=== PATIENT | female | born 1990 | race Caucasian/White ===

== ENCOUNTER 2020-09-17 13:34 | Outpatient (REF) | payer BC, SELFPAY ==
[2020-09-17 14:15] LABS: COVID-19 Test Negative (Negative)
== END 2020-09-17 13:35 | disposition home or self-care (01) ==
LOC: HO.LAB 13:34
PROVIDERS: PCP Internal Medicine; Visit Provider Internal Medicine
DX: Z20.828 Contact with and (suspected) exposure to other viral communicable diseases (principal)
CPT/HCPCS: 87635; C9803

== ENCOUNTER 2020-11-23 20:53 | Emergency (ER) | payer BC, SELFPAY ==
[2020-11-23 21:02] VITALS: BP 120/64; PULSE 78; RESP 16; TEMP 36.3; O2SAT 100; BMI 33.6
[2020-11-23 21:12] LABS: Glucose, Whole Blood 102 mg/dL (60-115)
--- NOTE | 2020-11-23 21:13 | PC.NURSE ---
BLOOD SUGAR IS 102
--- NOTE | 2020-11-23 21:53 | ED.ALLEREA ---
HPI - Allergic Reaction General Chief complaint: Allergic Reaction Stated complaint: CHEST PAIN,ABD PAIN AFTER EATING DINNER Time Seen by Provider: 11/23/20 21:12 Source: patient Mode of arrival: EMS History of Present Illness HPI narrative: This is a 30-year-old female without significant past medical history who presents via EMS after having dinner with her family where she was eating crab cakes, broccoli, and blue fish. Patient states that upon eating the blue fish she acutely developed significant substernal central chest pain, nonradiating that was associated with diaphoresis, nausea and vomiting, dizziness, mild hives to the neck, as well as facial flushing. Patient states that the pain was so significant, has never happened before, and has no allergies that she is aware of. Patient took a generic brand of Benadryl, but vomited afterwards. Patient states that her symptoms began resolving EN route to the hospital and currently she is experiencing mild residual pain and lightheadedness but otherwise is feeling much better. Related Data Previous Rx's Medication Instructions Recorded epinephrine [EpiPen] 0.3 mg IM Q10M PRN #1 ea 11/23/20 omeprazole 40 mg PO DAILY 30 Days #30 cap 11/23/20 Allergies Allergy/AdvReac Type Severity Reaction Status Date / Time fish derived [fish] Allergy Severe Shortness Verified 11/23/20 21:14 of Breath Review of Systems Review of Systems: Pertinent positives and negatives as stated in HPI and 10 point review of systems is otherwise negative. PMFSH Past Medical History Source: nursing notes reviewed Medical History No known health problems Social History Social History Advance Directives: No Advance Directives Information Provided: No Physical Exam Vital Signs: Vital Signs: Last Vital Signs Temp 97.3 F 11/23/20 21:02 Pulse 83 11/23/20 23:35 Resp 16 11/23/20 23:35 BP 117/70 11/23/20 23:35 Pulse Ox 99 11/23/20 23:35 Body Mass Index 33.6 VITAL SIGNS: Reviewed. GENERAL: Well developed, well nourished, in no acute distress. HEAD: Normocephalic/atraumatic, EYES: PERRLA, EOMI NOSE: Nares patent bilateral OROPHARYNX: no oral lesions noted, posterior pharynx clear without tongue/lip/facial swelling NECK: Supple, no adenopathy LUNGS: Normal breath sounds, no wheeze/rales/stridor. SpO2<100> CARDIOVASCULAR: Regular rate and rhythm without noted murmurs, no JVD or lower extremity edema. ABDOMEN: Soft, mild tenderness in the right upper quadrant on deep palpation, non-distended with bowel sounds. EXTREMITIES: No cyanosis, clubbing or edema. SKIN: Inspection of the skin reveals no rashes NEUROLOGIC: Alert and oriented x 4. Course Course Course Narrative: This is a 30-year-old female with history and clinical presentation consistent with allergic reaction with associated GI symptoms that have now resolved, unclear as to what the inciting food might have been. There are no concerns for airway at this time, but patient will continue to be monitored and as she is 4-1/2 months post will also evaluate for possible PE but doubt cardiac ischemia or pulmonary infection at this time. All investigations were reviewed and the noted leukocytosis is likely secondary to stress response from patient's experience and unlikely to be secondary to acute infection. In addition, the noted transaminemia is reported as chronic by the patient. Otherwise, the D-dimer was elevated and this was followed up with a CTA with PE protocol after discussion with the patient and was negative for evidence acute pathology to include no evidence VTE. Were discussed with the patient at bedside and she was provided with combination analgesics for persistent discomfort as well as antacid and will be discharged home in stable condition with an EpiPen as well as a prescription antacid instructions to follow-up with her primary care provider for coordination with an roads and parking lots sweeper operator. MDM - Allergic Reaction Lab Data Result diagrams: 11/23/20 21:55 11/23/20 21:55 Labs: Lab Results 11/23/20 11/23/20 11/23/20 Range/Units 21:07 21:55 21:55 WBC 13.8 H (4.8-10.8) X10*3/uL RBC 4.95 (4.20-5.50) X10*6/uL Hgb 13.0 (12.0-16.0) g/dl Hct 40.2 (37-47) % MCV 81.2 (80-98) fL MCH 26.3 L (27.0-33.0) pg MCHC 32.3 (31.0-35.0) g/dl RDW 14.0 (11.0-16.0) % Plt Count 309 (160-400) X10*3/uL MPV 9.5 (9.4-12.3) fL Immature Gran % (Auto) 0.5 H (0.0-0.4) % Neut % (Auto) 80.7 H (45-73) % Lymph % (Auto) 14.3 L (20-40) % [place] % (Auto) 4.1 (2-11) % Eos % (Auto) 0.2 (0-4) % Baso % (Auto) 0.2 (0-2) % Lymph # (Auto) 2.0 (1.2-4.9) X10*3/uL [place] # (Auto) 0.6 (0.1-1.2) X10*3/uL Eos # (Auto) 0.0 (0.0-0.4) X10*3/uL Baso # (Auto) 0.0 (0.0-0.2) X10*3/uL Abs Immat Gran (auto) 0.07 H (0.00-0.03) X10*3/uL Absolute Neuts (auto) 11.2 H (2.0-8.3) X10*3/uL Absolute Nucleated RBC 0.000 (0.0-0.012) X10*3/uL Nucleated RBC % (auto) 0.0 (0.0-0.2) /100WBC D-Dimer 663 NG/ML Sodium (135-145) mmol/L Potassium (3.3-5.1) mmol/l Chloride (96-108) mmol/L Carbon Dioxide (22-29) mmol/L Anion Gap (12-20) BUN (9-16) mg/dL Creatinine (0.5-1.4) mg/dL Estim Creat Clear Calc Estimated GFR POC Glucose 102 (60-115) mg/dL Random Glucose (60-115) mg/dL Calcium (8.4-10.2) mg/dL Total Bilirubin (0.0-1.0) mg/dL AST (5-31) U/L ALT (0-31) U/L Alkaline Phosphatase (39-117) U/L Total Protein (6.5-8.0) g/dL Albumin (3.5-5.0) g/dL 11/23/20 Range/Units 21:55 WBC (4.8-10.8) X10*3/uL RBC (4.20-5.50) X10*6/uL Hgb (12.0-16.0) g/dl Hct (37-47) % MCV (80-98) fL MCH (27.0-33.0) pg MCHC (31.0-35.0) g/dl RDW (11.0-16.0) % Plt Count (160-400) X10*3/uL MPV (9.4-12.3) fL Immature Gran % (Auto) (0.0-0.4) % Neut % (Auto) (45-73) % Lymph % (Auto) (20-40) % [place] % (Auto) (2-11) % Eos % (Auto) (0-4) % Baso % (Auto) (0-2) % Lymph # (Auto) (1.2-4.9) X10*3/uL [place] # (Auto) (0.1-1.2) X10*3/uL Eos # (Auto) (0.0-0.4) X10*3/uL Baso # (Auto) (0.0-0.2) X10*3/uL Abs Immat Gran (auto) (0.00-0.03) X10*3/uL Absolute Neuts (auto) (2.0-8.3) X10*3/uL Absolute Nucleated RBC (0.0-0.012) X10*3/uL Nucleated RBC % (auto) (0.0-0.2) /100WBC D-Dimer NG/ML Sodium 139 (135-145) mmol/L Potassium 4.3 (3.3-5.1) mmol/l Chloride 105 (96-108) mmol/L Carbon Dioxide 24 (22-29) mmol/L Anion Gap 14 (12-20) BUN 9 (9-16) mg/dL Creatinine 0.65 (0.5-1.4) mg/dL Estim Creat Clear Calc 132.9 Estimated GFR > 60 POC Glucose (60-115) mg/dL Random Glucose 115 (60-115) mg/dL Calcium 9.4 (8.4-10.2) mg/dL Total Bilirubin 0.2 (0.0-1.0) mg/dL AST 75 H (5-31) U/L ALT 39 H (0-31) U/L Alkaline Phosphatase 91 (39-117) U/L Total Protein 6.9 (6.5-8.0) g/dL Albumin 4.3 (3.5-5.0) g/dL Discharge Plan Discharge Clinical Impression: Allergic reaction Qualifiers: Encounter type: initial encounter Qualified Code(s): T78.40XA - Allergy, unspecified, initial encounter Patient Disposition: Home, Self-Care Instructions: Food Allergy (ED), Allergy Testing (ED) Additional Instructions: Recommend avoiding fish as well as shellfish until further evaluation by an roads and parking lots sweeper operator. Please follow-up with your primary care provider for coordination of referral to an roads and parking lots sweeper operator. Do not hesitate to return to the emergency department should you develop any acute worsening of your symptoms to include hives, lip/tongue swelling, or difficulty breathing. Prescriptions: New epinephrine [EpiPen] 0.3 mg/0.3 mL auto-injector 0.3 mg IM Q10M PRN (Reason: anaphylaxis) Qty: 1 RF: 0 omeprazole 40 mg capsule,delayed release(DR/EC) 40 mg PO DAILY 30 Days Qty: 30 RF: 0 Referrals: Physician,Unknown [Primary Care Provider] - 2 days
[2020-11-23 22:01] LABS: MANUAL DIFF FLAG NO
[2020-11-23 22:02] LABS: Basophils Percent Auto 0.2 % (0-2); Eosinophils Percent Auto 0.2 % (0-4); Hematocrit 40.2 % (37-47); Imm Gran Abs Auto 0.07 X10*3/uL (0.00-0.03); Imm Gran Pct Auto 0.5 % (0.0-0.4); Lymphocytes Percent Auto 14.3 % (20-40); Mean Corpuscular HGB Conc 32.3 g/dl (31.0-35.0); Mean Corpuscular Hemoglobin 26.3 pg (27.0-33.0); Mean Corpuscular Volume 81.2 fL (80-98); Mean Platelet Volume 9.5 fL (9.4-12.3); Monocytes Absolute Auto 0.6 X10*3/uL (0.1-1.2); Monocytes Percent Auto 4.1 % (2-11); Neutrophils Absolute Auto 11.2 X10*3/uL (2.0-8.3); Neutrophils Percent Auto 80.7 % (45-73); Platelet Count 309 X10*3/uL (160-400); Red Blood Count 4.95 X10*6/uL (4.20-5.50); White Blood Count 13.8 X10*3/uL (4.8-10.8)
[2020-11-23 22:14] LABS: D Dimer 663 NG/ML
[2020-11-23 22:26] LABS: Alanine Aminotransferase 39 U/L (0-31); Albumin Level 4.3 g/dL (3.5-5.0); Alkaline Phosphatase 91 U/L (39-117); Anion Gap 14 (12-20); Aspartate Amino Transferase 75 U/L (5-31); Bilirubin Total 0.2 mg/dL (0.0-1.0); Blood Urea Nitrogen 9 mg/dL (9-16); Calcium 9.4 mg/dL (8.4-10.2); Carbon Dioxide 24 mmol/L (22-29); Chloride 105 mmol/L (96-108); Creatinine Clr Calc Pharmacy 132.9; Estimated Glomerular Filt Rate > 60; Glucose Random 115 mg/dL (60-115); Potassium 4.3 mmol/l (3.3-5.1); Sodium 139 mmol/L (135-145); Total Protein 6.9 g/dL (6.5-8.0)
--- NOTE | 2020-11-23 22:37 | CT_ITS ---
EXAMINATION: CT ANGIOGRAM OF THE CHEST WITH AND WITHOUT CONTRAST (CT PULMONARY ANGIOGRAM FOR PE) CLINICAL INFORMATION: Reason for Exam SOB, elevated COMPARISON: None TECHNIQUE: Prior to contrast administration, noncontrast localization images were obtained. Subsequently, multidetector volumetric imaging was performed from the thoracic inlet to below the diaphragms following the administration of 80 mL Omnipaque 350 intravenous contrast. No contrast reaction reported Sagittal, coronal, and MIP oblique sagittal reformatted images were obtained on the CT workstation, uploaded to PACS, and reviewed. This CT examination was performed using dose optimization techniques as appropriate, variously including the following: *Automated exposure control *Adjustment of mA and/or kV according to patient size (this includes techniques or standardized protocols for targeted exams where dose is matched to indication/reason for exam; i.e. extremities or head) *Use of iterative reconstruction technique Total exam dose-length product 311 mGy-cm FINDINGS: QUALITY OF STUDY/CONTRAST BOLUS: Satisfactory. PULMONARY ARTERIES: No central or segmental pulmonary emboli. THORACIC AORTA: No aneurysm or dissection. LUNG: No focal consolidation, nodules or masses. PLEURA: No pleural effusion or pneumothorax. MEDIASTINUM: Normal heart size. No pericardial effusion. No hilar or mediastinal lymphadenopathy. No evidence of septal bowing or right heart strain. Soft tissue density anterior mediastinum is likely residual thymus CHEST WALL/AXILLA: No axillary or internal mammary lymphadenopathy. OSSEOUS STRUCTURES: No acute or suspicious osseous abnormality. UPPER ABDOMEN: Unremarkable. No reflux of contrast into the hepatic veins to suggest elevated right heart pressures. CT/CT angio chest PE protocol IMPRESSION: No evidence of PE. No evidence of aortic dissection or aneurysm. There is residual thymus in the anterior mediastinum. The lungs are clear. VTE: Negative.
--- NOTE | 2020-11-23 22:38 | ECG_ITS ---
Test Reason : SOB Blood Pressure : / mmHG Vent. Rate : 081 BPM Atrial Rate : 081 BPM P-R Int : 166 ms QRS Dur : 080 ms QT Int : 396 ms P-R-T Axes : 064 003 060 degrees QTc Int : 460 ms Normal sinus rhythm Normal ECG No previous ECGs available Referred By: Erma Bill Electronically Signed By:CRESENCIO CARTER MD
[2020-11-23] MEDS: iohexoL 350 MG/ML 100 ML INFUS..BTL 65 ML IV (23:21)
[2020-11-23] MEDS: 0.9 % Sodium Chloride 1,000 ML 999 ML IV (23:25)
[2020-11-23 23:33] LABS: Glucose Urine UA NEG (NEG); Leukocyte Esterase Urine 1+ (NEG); Nitrite Urine NEG (NEG); PH 8.5 (5.0-8.0); Urine Blood NEG (NEG); Urine Ketones NEG (NEG); Urine Protein NEG (NEG-TRACE)
[2020-11-23 23:35] VITALS: BP 117/70; PULSE 83; RESP 16; O2SAT 99
[2020-11-23 23:50] LABS: Appearance Urine HAZY; Color Urine STRAW
[2020-11-24 00:02] LABS: Bacteria Urine 1+ /LPF; Mucus Urine TRACE /LPF; RBC Urine 0 /HPF (0); Squamous Epithelial Cell Urine 3+ /LPF; UPreg QC Valid YES; Urine Pregnancy NEGATIVE (NEGATIVE); WBC Clumps Urine NOTED
[2020-11-24] MEDS: Acetaminophen 325 MG TABLET 975 MG PO (00:04)
[2020-11-24] MEDS: Famotidine/PF 20 MG/2 ML VIAL IVPUSH (00:06)
[2020-11-24] MEDS: Ketorolac Tromethamine 15 MG/ML VIAL IVPUSH (00:06)
== END 2020-11-24 00:37 | disposition home or self-care (01) ==
PROVIDERS: Emergency Provider Student in an Organized Health Care Education/Training Program
DX: R07.9 Chest pain, unspecified (principal); R10.9 Unspecified abdominal pain; T78.1XXA Other adverse food reactions, not elsewhere classified, initial encounter; X58.XXXA Exposure to other specified factors, initial encounter; Z79.899 Other long term (current) drug therapy
CPT/HCPCS: 36415; 71275; 80053; 81001; 81025; 82947; 85025; 85379; 87086; 93005; 96361; 96374; 96375; 99283; 99284; J1885; Q9967

== ENCOUNTER 2020-11-27 13:31 | Inpatient (IN) | payer BC, SELFPAY ==
--- NOTE | 2020-11-27 | US_ITS ---
EXAMINATION: US ABDOMEN COMPLETE CLINICAL INFORMATION: Abnormal liver function tests and pain. Evaluate for gallstones.. COMPARISON: None TECHNIQUE: Real-time imaging of the abdominal viscera. FINDINGS: PANCREAS: Normal. ABDOMINAL AORTA: The proximal, mid, and distal segments are normal in caliber. INFERIOR VENA CAVA: Visualized portions are normal. LIVER: Normal. The liver is normal in size. The liver contour is normal. Parenchymal echogenicity is normal. No focal hepatic lesion. There is no intrahepatic biliary duct dilatation seen. GALLBLADDER: The gallbladder is slightly dilated measuring 10 x 4 x 4 cm. There are gallstones in the gallbladder. Gallbladder wall does not appear thickened. There is no pericholecystic fluid. COMMON BILE DUCT: Normal in caliber measuring 0.7 cm in diameter. RIGHT KIDNEY: Normal. No hydronephrosis. No renal calculi or focal parenchymal lesions. The kidney measures 10.5 cm in maximum dimension. LEFT KIDNEY: Normal. No hydronephrosis. No renal calculi or focal parenchymal lesions. The kidney measures 11.6 cm in maximum dimension. SPLEEN: Normal. The spleen measures 10.3 cm in maximum dimension. FREE FLUID: None. US/US abdomen complete IMPRESSION: Dilated gallbladder with gallstones.
--- NOTE | 2020-11-27 | MR_ITS ---
EXAMINATION: MR ABDOMEN WITHOUT CONTRAST CLINICAL INFORMATION: Elevated liver function tests COMPARISON: CT 11/27/2020 TECHNIQUE: MR abdomen is performed without gadolinium contrast. Heavily T2-weighted MRCP images were obtained. FINDINGS: LUNG BASES: The visualized lung bases are unremarkable. LIVER, GALLBLADDER, AND BILIARY TREE: The liver is normal in size, smooth in contour, and normal in signal. No focal hepatic lesion or biliary ductal dilatation is present. Numerous tiny dependent gallstones are present. No gallbladder wall thickening or pericholecystic fluid. The gallbladder is less distended than it was on the earlier CT scan. Common bile duct is normal in caliber. No choledocholithiasis. No intrahepatic biliary ductal dilatation. PANCREAS: Limited noncontrast evaluation of the pancreas is normal. SPLEEN: Limited noncontrast evaluation of the spleen is normal. ADRENAL GLANDS: No adrenal mass. KIDNEYS AND URETERS: Noncontrast appearance of the kidneys are normal. No mass or hydronephrosis. GASTROINTESTINAL TRACT: No bowel obstruction. No ascites or fluid collection. ABDOMINAL WALL: No significant hernia is appreciated. LYMPH NODES: No lymphadenopathy. VASCULAR: Normal caliber abdominal aorta OSSEOUS STRUCTURES: No acute or suspicious osseous abnormality. MR/MR MRCP IMPRESSION: The gallbladder is less distended than it was on the earlier CT scan. No gallbladder wall thickening or pericholecystic fluid. Numerous tiny dependent gallstones are present. No choledocholithiasis. No biliary ductal dilatation.
--- NOTE | 2020-11-27 13:34 | CT_ITS ---
EXAMINATION: CT ABDOMEN AND PELVIS WITH CONTRAST CLINICAL INFORMATION: Right upper quadrant pain COMPARISON: Previous ultrasound from earlier the same day TECHNIQUE: Multidetector volumetric images were obtained from the superior aspect of the liver through the pubic symphysis following administration 85 mL of Omnipaque 350 intravenous contrast. Sagittal and coronal reformatted images were obtained on the technologist's workstation. Oral contrast: Yes This CT examination was performed using dose optimization techniques as appropriate, variously including the following: *Automated exposure control *Adjustment of mA and/or kV according to patient size (this includes techniques or standardized protocols for targeted exams where dose is matched to indication/reason for exam; i.e. extremities or head) *Use of iterative reconstruction technique DLP: 85 mGy-cm FINDINGS: LUNG BASES: The visualized lung bases are unremarkable. LIVER, GALLBLADDER, AND BILIARY TREE: The liver is normal in size, shape, and attenuation. No focal hepatic lesion or biliary ductal dilatation is present. The gallbladder is slightly enlarged measuring 11 x 4 x 4 cm. There are 2 small gallstone seen in the gallbladder. The gallbladder wall does not appear thickened. There is no pericholecystic fluid. The common bile duct is upper normal in size measuring 7 mm. No common bile duct stone is appreciated by CT scan. PANCREAS: Unremarkable. SPLEEN: Unremarkable. ADRENAL GLANDS: Unremarkable. KIDNEYS AND URETERS: The kidneys are normal in size, shape, and attenuation. No hydronephrosis, hydroureter, or calculi seen. No perinephric stranding. BLADDER: Unremarkable. GASTROINTESTINAL TRACT: The small and large bowel are unremarkable. The appendix is is not identified. ABDOMINAL WALL: No significant hernia is appreciated. LYMPH NODES: Normal. VASCULAR: Unremarkable. PELVIC VISCERA: There may be a small 2.4 x 1.9 cm left ovarian cyst. Uterus and adnexa are otherwise unremarkable. There is a small amount of fluid in the pelvis. OSSEOUS STRUCTURES: Unremarkable. CT/CT abdomen pelvis w con IMPRESSION: Slightly dilated gallbladder and small gallstones. Normal-appearing gallbladder wall. No pericholecystic fluid. Normal caliber intrahepatic bile ducts. The common bile duct is upper normal in size. No common bile duct stone is seen by CT. Probable small 1.8 x 2.4 cm left ovarian cyst. Small amount of fluid in the pelvis.
--- NOTE | 2020-11-27 13:34 | ED_ITS ---
HPI - Abdominal Pain General Chief Complaint: Abdominal Pain Time Seen by Provider: 11/27/20 13:33 Source: patient and old records reviewed Mode of arrival: ambulatory Limitations: no limitations History of Present Illness MD elicited complaint: abdominal pain Onset (ago): day(s) (4) Pain Consistency: intermittent Location: epigastric and RUQ Severity: moderate Quality: stabbing Radiation: RUQ and epigastric Migration to: no migration Exacerbating factors: eating Relieving factors: nothing Associated symptoms: nausea and vomiting Related Data Previous Rx's Medication Instructions Recorded epinephrine [EpiPen] 0.3 mg IM Q10M PRN #1 ea 11/23/20 omeprazole 40 mg PO DAILY 30 Days #30 cap 11/23/20 Allergies Allergy/AdvReac Type Severity Reaction Status Date / Time fish derived [fish] Allergy Severe Shortness Verified 11/23/20 21:14 of Breath Review of Systems Review of Systems Constitutional : No Weight loss, No Fever, No Chills ENT/Mouth : No sore throat, No Rhinorrhea Eyes: No Swelling, No Redness Cardiovascular : No Chest Pain, No SOB, NoEdema Respiratory : No Cough, No Sputum, No Wheezing Gastrointestinal : Positive Nausea, Positive Vomiting, no Diarrhea, positive abdominal Pain, No Hematochezia, No Melena Genitourinary : No Dysuria, No Urinary Frequency, No Hematuria, No Urgency Musculoskeletal : No joint pain, No Myalgias, No Joint Swelling Skin : No Skin Lesions, No rash Neuro : No Weakness, No Numbness, No Dizziness, No Headache Psych : No Anxiety/Panic, No Depression Heme/Lymph: No Bruising, No Lymphadenopathy Endocrine : No Polyuria, No Polydipsia All other systems reviewed and are negative. Physical Exam Vital Signs: Vital Signs: Last Vital Signs Temp 98.5 F 11/27/20 13:35 Pulse 77 11/27/20 13:35 Resp 16 11/27/20 13:35 BP 132/85 11/27/20 13:35 Pulse Ox 98 11/27/20 13:35 Body Mass Index 33.6 Appearance: Alert. Oriented X3. No acute distress. Eyes: Pupils equal, round and reactive to light. ENT: Pharynx normal. Neck: Normal inspection. Neck supple. CVS: Normal heart rate and rhythm. Pulses normal. Respiratory: No respiratory distress. Breath sounds normal. Abdomen: Soft and moderate RUQ and epigastric ttp with + Handley's sign Skin: Skin warm and dry. Normal skin color. Normal skin turgor. Extremities: No lower extremity edema. No calf ttp Neuro: Oriented X 3. No motor deficit. No sensory deficit. Course Course Course Narrative: repeat call to surgery given LFTs - Dr. Santillan to come down and see patient, will consult GI once final read in, Dr. Santillan to admit call to GI Dr. Vela 303pm MDM - Abdominal Pain MDM Narrative Medical decision making narrative: 30 yo female with RUQ and epigastric pain following eating it initially radiated to her chest just had negative CTA of chest for PE - at this time US ordered which showed gallstones and prominent CBD but no fluid or GB wall thickness, discussed with Dr. Santillan - recommends CT scan of abdomen at this time, repeat labs, IVF/IV Toradol for pain, dispo per results and findings. Lab Data Result diagrams: 11/27/20 13:49 11/27/20 13:49 Labs: Lab Results 11/27/20 11/27/20 11/27/20 Range/Units 13:49 13:49 13:49 WBC 9.3 (4.8-10.8) X10*3/uL RBC 5.34 (4.20-5.50) X10*6/uL Hgb 13.8 (12.0-16.0) g/dl Hct 42.5 (37-47) % MCV 79.6 L (80-98) fL MCH 25.8 L (27.0-33.0) pg MCHC 32.5 (31.0-35.0) g/dl RDW 14.5 (11.0-16.0) % Plt Count 358 (160-400) X10*3/uL MPV 9.4 (9.4-12.3) fL Immature Gran % (Auto) 0.6 H (0.0-0.4) % Neut % (Auto) 64.2 (45-73) % Lymph % (Auto) 28.2 (20-40) % [place] % (Auto) 6.1 (2-11) % Eos % (Auto) 0.6 (0-4) % Baso % (Auto) 0.3 (0-2) % Lymph # (Auto) 2.6 (1.2-4.9) X10*3/uL [place] # (Auto) 0.6 (0.1-1.2) X10*3/uL Eos # (Auto) 0.1 (0.0-0.4) X10*3/uL Baso # (Auto) 0.0 (0.0-0.2) X10*3/uL Abs Immat Gran (auto) 0.06 H (0.00-0.03) X10*3/uL Absolute Neuts (auto) 5.9 (2.0-8.3) X10*3/uL Absolute Nucleated RBC 0.000 (0.0-0.012) X10*3/uL Nucleated RBC % (auto) 0.0 (0.0-0.2) /100WBC Hold Blue Top SEE NOTE Sodium 136 (135-145) mmol/L Potassium 4.0 (3.3-5.1) mmol/l Chloride 103 (96-108) mmol/L Carbon Dioxide 25 (22-29) mmol/L Anion Gap 12 (12-20) BUN 8 L (9-16) mg/dL Creatinine 0.66 (0.5-1.4) mg/dL Estim Creat Clear Calc 130.8 Estimated GFR > 60 Random Glucose 97 (60-115) mg/dL Calcium 9.6 (8.4-10.2) mg/dL Magnesium 2.1 (1.6-2.6) mg/dL Total Bilirubin 1.6 H (0.0-1.0) mg/dL Direct Bilirubin 1.2 H (0.0-0.5) mg/dL AST 838 H (5-31) U/L ALT 761 H (0-31) U/L Alkaline Phosphatase 320 H D (39-117) U/L Total Protein 7.5 (6.5-8.0) g/dL Albumin 4.7 (3.5-5.0) g/dL Lipase 34 (8-78) U/L Discharge Plan Discharge Clinical Impression: Elevated LFTs Abdominal pain Qualifiers: Abdominal location: epigastric Qualified Code(s): R10.13 - Epigastric pain Cholelithiasis Qualifiers: Cholelithiasis location: gallbladder Cholecystitis presence: without cholecystitis Biliary obstruction: without biliary obstruction Qualified Code(s): K80.20 - Calculus of gallbladder without cholecystitis without obstruction Patient Disposition: Admitted As Inpatient [facility] Past Medical History Attestation statement: The following information was validated with the patient. Medical History No known health problems Social History Social History (Updated 11/27/20 @ 13:55 by Mimi Gunn DO) Smoking Status: Never smoker
[2020-11-27 13:35] VITALS: BP 132/85; PULSE 77; RESP 16; TEMP 36.9; O2SAT 98; BMI 33.6
[2020-11-27 13:55] LABS: MANUAL DIFF FLAG NO
[2020-11-27 14:01] LABS: Basophils Percent Auto 0.3 % (0-2); Eosinophils Absolute Auto 0.1 X10*3/uL (0.0-0.4); Eosinophils Percent Auto 0.6 % (0-4); Hematocrit 42.5 % (37-47); Hemoglobin 13.8 g/dl (12.0-16.0); Imm Gran Abs Auto 0.06 X10*3/uL (0.00-0.03); Imm Gran Pct Auto 0.6 % (0.0-0.4); Lymphocytes Absolute Auto 2.6 X10*3/uL (1.2-4.9); Lymphocytes Percent Auto 28.2 % (20-40); Mean Corpuscular HGB Conc 32.5 g/dl (31.0-35.0); Mean Corpuscular Hemoglobin 25.8 pg (27.0-33.0); Mean Corpuscular Volume 79.6 fL (80-98); Mean Platelet Volume 9.4 fL (9.4-12.3); Monocytes Absolute Auto 0.6 X10*3/uL (0.1-1.2); Monocytes Percent Auto 6.1 % (2-11); Neutrophils Absolute Auto 5.9 X10*3/uL (2.0-8.3); Neutrophils Percent Auto 64.2 % (45-73); Platelet Count 358 X10*3/uL (160-400); Red Blood Count 5.34 X10*6/uL (4.20-5.50); Red Cell Distribution Width 14.5 % (11.0-16.0); White Blood Count 9.3 X10*3/uL (4.8-10.8)
[2020-11-27] MEDS: ondansetron HCL 4 MG/2 ML VIAL IVPUSH (14:12)
[2020-11-27] MEDS: 0.9 % Sodium Chloride 1,000 ML 999 ML IVCONT (14:12)
[2020-11-27] MEDS: Ketorolac Tromethamine 30 MG/ML VIAL IVPUSH (14:12)
[2020-11-27] MEDS: iohexoL 350 MG/ML 100 ML INFUS..BTL 85 ML IV (14:23)
[2020-11-27 14:31] LABS: Alanine Aminotransferase 761 U/L (0-31); Albumin Level 4.7 g/dL (3.5-5.0); Alkaline Phosphatase 320 U/L (39-117); Anion Gap 12 (12-20); Aspartate Amino Transferase 838 U/L (5-31); Bilirubin Direct 1.2 mg/dL (0.0-0.5); Bilirubin Total 1.6 mg/dL (0.0-1.0); Blood Urea Nitrogen 8 mg/dL (9-16); Calcium 9.6 mg/dL (8.4-10.2); Carbon Dioxide 25 mmol/L (22-29); Chloride 103 mmol/L (96-108); Creatinine Clr Calc Pharmacy 130.8; Estimated Glomerular Filt Rate > 60; Glucose Random 97 mg/dL (60-115); Lipase 34 U/L (8-78); Magnesium 2.1 mg/dL (1.6-2.6); Sodium 136 mmol/L (135-145); Total Protein 7.5 g/dL (6.5-8.0)
[2020-11-27 15:32] LABS: MANUAL DIFF FLAG NO
[2020-11-27 15:38] LABS: Basophils Percent Auto 0.2 % (0-2); Eosinophils Percent Auto 0.5 % (0-4); Hematocrit 40.9 % (37-47); Hemoglobin 13.3 g/dl (12.0-16.0); Imm Gran Abs Auto 0.04 X10*3/uL (0.00-0.03); Imm Gran Pct Auto 0.5 % (0.0-0.4); Lymphocytes Absolute Auto 2.3 X10*3/uL (1.2-4.9); Lymphocytes Percent Auto 26.9 % (20-40); Mean Corpuscular HGB Conc 32.5 g/dl (31.0-35.0); Mean Corpuscular Hemoglobin 26.1 pg (27.0-33.0); Mean Corpuscular Volume 80.2 fL (80-98); Mean Platelet Volume 9.2 fL (9.4-12.3); Monocytes Absolute Auto 0.6 X10*3/uL (0.1-1.2); Monocytes Percent Auto 6.6 % (2-11); Neutrophils Absolute Auto 5.6 X10*3/uL (2.0-8.3); Neutrophils Percent Auto 65.3 % (45-73); Platelet Count 339 X10*3/uL (160-400); Red Cell Distribution Width 14.4 % (11.0-16.0); White Blood Count 8.6 X10*3/uL (4.8-10.8)
[2020-11-27 15:39] LABS: Glucose Urine UA NEG (NEG); Leukocyte Esterase Urine NEG (NEG); Nitrite Urine NEG (NEG); PH 7.5 (5.0-8.0); Urine Blood NEG (NEG); Urine Ketones NEG (NEG); Urine Protein NEG (NEG-TRACE)
[2020-11-27 15:51] LABS: Appearance Urine CLEAR; Color Urine YELLOW
[2020-11-27 15:52] LABS: UPreg QC Valid YES; Urine Pregnancy NEGATIVE (NEGATIVE)
[2020-11-27 15:59] LABS: Alanine Aminotransferase 770 U/L (0-31); Albumin Level 4.3 g/dL (3.5-5.0); Alkaline Phosphatase 305 U/L (39-117); Anion Gap 13 (12-20); Aspartate Amino Transferase 832 U/L (5-31); Bilirubin Total 1.7 mg/dL (0.0-1.0); Blood Urea Nitrogen 7 mg/dL (9-16); Calcium 8.8 mg/dL (8.4-10.2); Carbon Dioxide 22 mmol/L (22-29); Chloride 105 mmol/L (96-108); Estimated Glomerular Filt Rate > 60; Glucose Random 90 mg/dL (60-115); Potassium 4.2 mmol/l (3.3-5.1); Sodium 136 mmol/L (135-145); Total Protein 6.9 g/dL (6.5-8.0)
--- NOTE | 2020-11-27 16:07 | PC.NURSE ---
called to give report, rn will call back
--- NOTE | 2020-11-27 16:17 | P.HPGS_ITS ---
History of Present Illness History of Present Illness Date of Service: 11/28/20 Chief complaint: Elevated LFT's, gallstones Narrative: Karina Strauss is a 30 year old female who came in today emergency room because of epigastric pain and substernal pain. She describes this as moderate to severe. She states that this started last night. It appears that this has improved significantly since he got pain medications earlier today in the emergency room. She apparently was very tender when she came today. She was in the emergency room as well last November 23 which was about 4 days ago for the same problem. She describes significant substernal pain and epigastric pain. She actually says this was much more severe than today's episode. She was worked up for PE and CT angiogram which is not reveal any obvious pathology. She says she was fine at home until last night. Review of Systems Constitutional: Constitutional: Denies chills and Denies fever(s) Cardiovascular: Cardiovascular: Denies chest pain, Denies dyspnea and Denies dyspnea on exertion Respiratory: Respiratory: Denies cough, Denies dyspnea and Denies dyspnea on exertion Gastrointestinal: Gastrointestinal: Denies hematochezia and Denies change in bowel habits Genitourinary: Genitourinary: Denies hematuria Musculoskeletal: Musculoskeletal: Denies back pain and Denies limited range of motion Neurologic: Denies focal weakness and Denies convulsions Psychiatric: Psychiatric: Denies depression and Denies mood swings PMFSH Past Medical History Medical History No known health problems Seizure disorder Social History Social History Household Members: Spouse Housing: House Do you presently have visiting nurse or other home services: No Smoking Status: Never smoker Use of substances other than those prescribed or required for medical reasons: No Currently Displaying Signs/Symptoms of Drug Intoxication Withdrawal: No Have you been hit, kicked, punched, or otherwise hurt by someone within the past year? If so, by whom?: No Do you feel safe in your current relationship?: Yes Is there a partner from a previous relationship who is making you feel unsafe now?: No Are you made to feel afraid or neglected: No Advance Directives: No Advance Directives Information Provided: Yes Do you have thoughts of harming others: None Do you have a plan to hurt others: No Plan Recently lost weight without trying: No service: No Current occupational status: employed Meds Allergies Allergy/AdvReac Type Severity Reaction Status Date / Time fish derived [fish] Allergy Severe Shortness Verified 11/23/20 21:14 of Breath Physical Exam Vital Signs: Vital Signs: Last Vital Signs Temp 98.5 F 11/27/20 13:35 Pulse 77 11/27/20 13:35 Resp 16 11/27/20 13:35 BP 132/85 11/27/20 13:35 Pulse Ox 98 11/27/20 13:35 Body Mass Index 33.6 Const: General: comfortable and no acute distress Orientation/consciousness: patient oriented x3 Eyes: Sclerae: sclerae normal Neck: Neck: Yes no lymphadenopathy Resp: Auscultation: clear to auscultation bilaterally Cardio: Rhythm: regular rhythm GI: Palpation (GI): Soft to palpation, nontender and no guarding Neuro: General: patient oriented x3 Results Results Labs: Short CBC 11/27/20 11/27/20 Range/Units 13:49 15:27 WBC 9.3 8.6 (4.8-10.8) X10*3/uL Hgb 13.8 13.3 (12.0-16.0) g/dl Hct 42.5 40.9 (37-47) % Plt Count 358 339 (160-400) X10*3/uL BMP 11/27/20 11/27/20 13:49 15:27 Sodium 136 136 Potassium 4.0 4.2 Chloride 103 105 Carbon Dioxide 25 22 BUN 8 L 7 L Creatinine 0.66 0.63 Calcium 9.6 8.8 D Liver Function 11/27/20 11/27/20 Range/Units 13:49 15:27 Total Bilirubin 1.6 H 1.7 H (0.0-1.0) mg/dL Direct Bilirubin 1.2 H (0.0-0.5) mg/dL AST 838 H 832 H (5-31) U/L ALT 761 H 770 H (0-31) U/L Alkaline Phosphatase 320 H D 305 H (39-117) U/L Albumin 4.7 4.3 (3.5-5.0) g/dL Urine 01/20/21 01/20/21 Range/Units 15:27 15:27 Urine Color YELLOW Urine Appearance CLEAR Urine pH 7.5 (5.0-8.0) Ur Specific [place] 1.010 (1.005-1.025) Urine Protein NEG (NEG-TRACE) MG/DL Urine Glucose (UA) NEG (NEG) MG/DL Urine Test NEGATIVE (NEGATIVE) Assessment and Plan (1) Elevated LFTs: Status: Acute She has significant duration of her LFTs, mostly AST and ALT. I reviewed her CAT scan and this does not show significant suggestion of any CBD obstruction. I will consult GI for this. I told the patient that in view of the significant elevation of her ALT and AST, I would recommend admission to trend this. I explained to her that 1 differential would be that she may have passed a stone into the CBD although this is not suggested by her CAT scan. Furthermore, the the AST/ ALT are disproportionately more elevated than her bilirubin which is suggestive of parenchymal disease of the liver. (2) Cholelithiasis: Qualifiers: Biliary obstruction: without biliary obstruction Cholecystitis presence: without cholecystitis Cholelithiasis location: gallbladder Qualified Code(s): K80.20 - Calculus of gallbladder without cholecystitis without obstruction Status: Acute Her imaging studies do not show suggestion of cholecystitis. Currently she is nontender and does not have Handley's sign. Her presentation is not consistent with simple biliary colic with her ALT in AST elevation. She has no leukocytosis and has a very benign abdominal exam. We will await input from GI and likely schedule her for MRCP. I spent over an hour reviewing patient's records, reviewing imaging studies and evaluating patient.
[2020-11-27 16:27] LABS: COVID-19 Test Negative (Negative)
[2020-11-27 17:47] VITALS: BP 115/67; PULSE 65; RESP 16; TEMP 36.8; O2SAT 98
[2020-11-27] MEDS: Lactated Ringers 500 ML 100 ML IV (18:00)
[2020-11-27 20:00] VITALS: BP 112/66; PULSE 62; RESP 20; TEMP 36.7; O2SAT 98
[2020-11-27 20:43] LABS: INTERNATIONAL NORM RATIO 1.1 (0.9-1.1); Prothrombin Time 12.5 SEC (10.8-13.0)
[2020-11-27 23:46] VITALS: BP 105/50; PULSE 71; RESP 20; TEMP 36.2; O2SAT 96
[2020-11-28 04:00] VITALS: BP 102/56; PULSE 69; RESP 19; TEMP 36.4; O2SAT 98
[2020-11-28 06:22] LABS: Hematocrit 39.2 % (37-47); Hemoglobin 12.5 g/dl (12.0-16.0); Mean Corpuscular HGB Conc 31.9 g/dl (31.0-35.0); Mean Corpuscular Hemoglobin 25.6 pg (27.0-33.0); Mean Corpuscular Volume 80.3 fL (80-98); Mean Platelet Volume 9.4 fL (9.4-12.3); Platelet Count 321 X10*3/uL (160-400); Red Blood Count 4.88 X10*6/uL (4.20-5.50); Red Cell Distribution Width 14.6 % (11.0-16.0); White Blood Count 8.2 X10*3/uL (4.8-10.8)
[2020-11-28 06:25] LABS: INTERNATIONAL NORM RATIO 1.1 (0.9-1.1); Prothrombin Time 12.7 SEC (10.8-13.0)
[2020-11-28 07:08] LABS: Alanine Aminotransferase 727 U/L (0-31); Albumin Level 3.9 g/dL (3.5-5.0); Alkaline Phosphatase 265 U/L (39-117); Anion Gap 13 (12-20); Aspartate Amino Transferase 435 U/L (5-31); Bilirubin Direct 0.4 mg/dL (0.0-0.5); Bilirubin Total 0.7 mg/dL (0.0-1.0); Blood Urea Nitrogen 6 mg/dL (9-16); Calcium 8.9 mg/dL (8.4-10.2); Carbon Dioxide 23 mmol/L (22-29); Chloride 107 mmol/L (96-108); Creatinine Clr Calc Pharmacy 132.9; Estimated Glomerular Filt Rate > 60; Glucose Random 75 mg/dL (60-115); Iron 214 mcg/dL (30-160); Percent Iron Saturation 59 % (15-50); Potassium 4.3 mmol/l (3.3-5.1); Sodium 139 mmol/L (135-145); Total Iron Binding Capacity 365 mcg/dL (228-428); Total Protein 6.3 g/dL (6.5-8.0); Unsaturated Iron Binding 151 ug/dL
[2020-11-28 07:28] LABS: Ferritin 16 ng/mL (10-122)
[2020-11-28 08:00] VITALS: BP 116/60; PULSE 63; RESP 20; TEMP 36.8; O2SAT 98
--- NOTE | 2020-11-28 08:22 | PM.PNGS ---
Subjective Subjective Date of Service: 11/28/20 <Jesica Munson PA-C - Last Filed: 11/28/20 08:27> 11/28/20 <Willy Santillan MD - Last Filed: 11/28/20 12:53> Interval history: Feels better this morning. No pain since yesterday afternoon. Tolerating clear liquids. No N/V. <Jesica Munson PA-C - Last Filed: 11/28/20 08:27> Physical Exam Vital Signs: Vital Signs: Last Vital Signs Temp 98.2 F 11/28/20 08:00 Pulse 63 11/28/20 08:00 Resp 20 11/28/20 08:00 BP 116/60 11/28/20 08:00 Pulse Ox 98 11/28/20 08:00 Body Mass Index 33.6 <FRANKLIN Barragan Last Filed: 11/28/20 08:27> Const: General: healthy appearing, no acute distress and alert <Jesica Munson PA-C - Last Filed: 11/28/20 08:27> Orientation/consciousness: patient oriented x3 <FRANKLIN Barragan Last Filed: 11/28/20 08:27> Eyes: Sclerae: sclerae normal <FRANKLIN Barragan Last Filed: 11/28/20 08:27> Resp: Effort & Inspection: normal respiratory effort <FRANKLIN Barragan Last Filed: 11/28/20 08:27> Cardio: Rate: regular rate <FRANKLIN Barragan Last Filed: 11/28/20 08:27> GI: Inspection: Yes normal to inspection and No distended <FRANKLIN Barragan Last Filed: 11/28/20 08:27> Palpation (GI): Soft to palpation, nontender, no guarding, not rigid and Other GI palpation findings present (negative leslie sign) <FRANKLIN Barragan Last Filed: 11/28/20 08:27> Skin: Other: normal color, warm and dry <FRANKLIN Barragan Last Filed: 11/28/20 08:27> General skin exam: no rashes or lesions noted <Jesica Munson PA-C - Last Filed: 11/28/20 08:27> Neuro: General: patient oriented x3 <FRANKLIN Barragan Last Filed: 11/28/20 08:27> Extrem: General: Yes no clubbing, cyanosis or edema <Jesica Munson PA-C - Last Filed: 11/28/20 08:27> Progress Note: A&P Assessment and plan (1) Abdominal pain: Status: Acute <FRANKLIN Barragan Last Filed: 11/28/20 08:27> (2) Cholelithiasis: Status: Acute <Jesica Munson PA-C - Last Filed: 11/28/20 08:27> Assessment and Plan: Has had no pain since she arrived at the ER Slept well overnight No fever Abdomen soft, nontender LFTs improving White count normal MRCP does not show CBD stones Discussed with Dr. Vela - she likely had passed a stone causing elevation in her LFTs In absence of any other pathology, reasonable to do cholecystectomy Patient wants this done prior to discharge Explained to her the technique of laparoscopic cholecystectomy and possible open cholecystectomy. Discussed the risks including but not limited to bleeding, infections, injury to bowel, liver and bile duct, retained stones, bile leak as well as benefits and alternatives She wants to proceed If LFTs continued to trend down, likely laparoscopic cholecystectomy tomorrow Seen and examined independently <Willy Santillan MD - Last Filed: 11/28/20 12:53> (3) Elevated LFTs: Status: Acute <Jesica Munson PA-C - Last Filed: 11/28/20 08:27> Assessment and Plan: Improved this am. Bili now normal, transaminases improved. No further abd pain. VSS. Abd exam benign- soft, nontender, negative leslie sign. MRCP- The gallbladder is less distended, no wall thickening or pericholecystic fluid, no biliary ductal dilatation, liver normal. ?Biliary obstruction with passed stone as cause of elevated LFTs. Await GI input. If no other etiology of elevated liver enzymes, would likely benefit from CCY down the line. Will continue clear liquids until seen by GI then advance as tolerated. <Jesica Munson PA-C - Last Filed: 11/28/20 08:27> Fall Risk Details Current Medications: Current Medications Generic Name Dose Route Start Last Admin Trade Name Freq PRN Reason Stop Dose Admin Morphine Sulfate 3 mg 11/27/20 15:07 Morphine Sulfate 4 Mg/Ml Cartridge IVPUSH Q4H PRN pain Ondansetron HCl 4 mg 11/27/20 15:07 Ondansetron Hcl 4 Mg/2 Ml Vial IVPUSH Q8H PRN nausea <Jesica Munson PA-C - Last Filed: 11/28/20 08:27> Time Spent With Patient Time: Total time spent is greater than 50% in coordination of care (as documented) at patient's floor/unit and/or counseling patient: <Jesica Munson PA-C - Last Filed: 11/28/20 08:27> Time with patient: 15 - 24 minutes <Jesica Munson PA-C - Last Filed: 11/28/20 08:27>
--- NOTE | 2020-11-28 09:09 | PM.EVENT ---
Event Note Date of Service: 11/28/20 Event Note: GI Consult-Full note dictated-labs and xrays reviewed Imp: I suspect she has passed a CBD stone given the acute onset of sx and lab abnormalities with subsequent rapid spontaneous improvement and negative MRCP. She appears well with a benign abdomen and no signs of hepatic failure. Rec: F/U labs in AM. If she continues to improve I would hold off on ERCP and proceed with CCY, sooner than later. D/W Dr. Santillan. D/W patient in detail and she is comfortable with this plan. Thanks
[2020-11-28 09:23] LABS: HBS Num1 144.76 mIU/mL (0-7.99); HBc Num1 0.06 S/CO (0.00-0.79); HBsAGNum1 0.45 S/CO (0.00-0.99); Hepatitis A Antibody IgM 0.22 Index (0-0.79); Hepatitis B Core Antibody Nonreactive (Nonreactive); Hepatitis B Surface Antigen Negative (Negative); ~HepC Num1 0.09 S/CO (0.00-0.79); ~Hepatitis A Antibody IgM Nonreactive (Nonreactive); ~Hepatitis B Surface Antibody REACTIVE (Nonreactive); ~Hepatitis C Antibody Nonreactive (Nonreactive)
--- NOTE | 2020-11-28 11:34 | MHC.CM.PN ---
Addendum entered by Vandana Bone RN 11/28/20 13:48: PT COMPLETED HCP WITH CM. PT GIVEN ORIGINAL AND THREE COPIES, COPY UPLOADED TO [facility] AND PLACED IN CHART WITH PT'S PERMISSION. HCP GIANNA SANDHU () [phone] ALTERNATE: GIOVANNI AMBROSIO [phone] Original Note: aNTICIPATED DISCHARGE PLAN 11/29/20 HOME SELF-CARE, FAMILY TO TRANSPORT. EMR REVIEWED, CM MET WITH PT WHO IS ALERT AND ORIENTED AND FAMILIAR WITH PLAN OF CARE, PT WILL EITHER HAVE CHOLEY PRIOR TO D/C OR MAY RETURN AN OUTPT PROCEDURE, LIVER ENZYMES ARE BEING MONITORED. PT REPORTS SHE WORKS AT [employer] [place] AND IS INDEPENDENT WITH ALL CARE AT HOME, PT DENIES USE OF DME AND HOME SERVICES. PT LIVES WITH AND APPROXIMATELY 6MONTHS, PT REPORTS WILL HAVE HELP FROM AND PARENTS ONCE HOME. PT VERIFIES PCP, PHARMACY AND WOULD LIKE TO COMPLETE HCP WITH CM. PCP: DR RANI PALMER PHARMACY: [facility]
[2020-11-28 12:00] VITALS: BP 123/71; PULSE 74; RESP 20; TEMP 36.6; O2SAT 96
--- NOTE | 2020-11-28 13:52 | MHC.CM.PN ---
PER PT DR. HOPKINS HAS FIT PT INTO SCHEDULE FOR 1PM FOR HER LAP CHOLEY TOMORROW 11/29/20, LONG LABS ARE BETTER SHE WILL HAVE PROCEDURE PRIOR TO D/C.
[2020-11-28 14:16] VITALS: BMI 33.6
[2020-11-28 15:57] VITALS: BP 116/66; PULSE 65; RESP 18; TEMP 36.9; O2SAT 98
[2020-11-28 20:00] VITALS: BP 116/72; PULSE 75; RESP 16; TEMP 36.4; O2SAT 98
--- NOTE | 2020-11-28 22:31 | CONS_ITS ---
DATE OF SERVICE: 11/28/2020 REQUESTING PHYSICIAN: Willy Santillan MD. REASON FOR CONSULTATION: Abdominal pain, elevated LFTs, and gallstones. History has been obtained from the patient and the medical record. The patient is a 30-year-old healthy female, who describes the onset of a possible allergic reaction to some food several days before this admission. She describes having developed some hives and shortness of breath, as well as some epigastric and substernal discomfort. She came to the ER at that time and was evaluated, including with a chest CT angiogram which was negative for pulmonary embolus. She did well and was discharged. She was noted to have some very slight elevation of her liver enzymes at that time, but was not really having any other upper abdominal complaints. Over the subsequent several days, she began having some recurrence of her upper abdominal complaints of some pressure and discomfort in the epigastric area. She was somewhat anorectic. She did have some vomiting, but there was no hematemesis nor coffee-ground emesis. She did not notice any diarrhea, melena, nor hematochezia. She never noticed any jaundice nor brown urine, although does report that her urine was somewhat dark. Due to worsening of her symptoms of pain, she came to the ER and was found to have significant elevation of her liver enzymes and some elevation of the total bilirubin. Workup revealed gallstones and she was admitted for further evaluation. Since admission, she actually reports that she has been feeling better with no further episodes of abdominal pain. She has been afebrile. She denies any preceding history of liver disease in herself. She denies any significant alcohol use. She denies any history of ulcer disease in herself. She does not use any significant amounts of NSAIDs. Of note, she is several months . She reports that she did not have any particular GI complaints during the , however. MEDICATIONS: At home, she was started on omeprazole after the first ER visit several days ago, but does not take any other chronic medications. Medications here in the hospital include Toradol p.r.n., morphine p.r.n., Zofran p.r.n. PAST MEDICAL HISTORY: Knee surgery. She denies history of heart disease, diabetes, lung disease, stroke, nor kidney disease. SOCIAL HISTORY: She is an ER nurse at [employer]. She is . She has 1 child. She does not smoke nor use any significant amounts of alcohol. FAMILY HISTORY: Noncontributory. REVIEW OF SYSTEMS: CONSTITUTIONAL: Prior to the past several days, she was feeling well with good energy and good appetite. SKIN: No rash. No pruritus. CARDIAC: No chest pain. PULMONARY: No coughing or hemoptysis. GI: As above. URINARY: No dysuria, hematuria. PHYSICAL EXAMINATION: GENERAL: The patient is currently resting in bed comfortably, in no distress. SKIN: Warm and dry. Nonjaundiced. No spider angiomata. Anicteric sclerae. NECK: Supple without lymphadenopathy. CARDIAC: Normal S1 and S2. ABDOMEN: Soft. Normal bowel sounds and nontender. There is no palpable organomegaly. EXTREMITIES: Without edema. DIAGNOSTIC DATA: Her abdominal ultrasound describes the finding of a slightly dilated gallbladder and gallstones, but without any gallbladder wall thickening nor surrounding fluid. The common bile duct was 7 mm and there was no intrahepatic bile duct dilatation. There was no sign of splenomegaly nor ascites. She had a CAT scan of the abdomen after that which again described a slightly dilated gallbladder and gallstones. There was no radiographic evidence of cholecystitis. There was no other significant intraabdominal pathology. She did go for a MRCP, which also describes the presence of gallstones in the gallbladder, but no evidence of any biliary abnormalities and specifically no sign of biliary obstruction or choledocholithiasis. LABORATORIES: White blood cell count of 8.2 and hemoglobin 12.5. PT 12.7, INR 1.1. Normal chemistries, BUN and creatinine. She did have a total bilirubin of 1.6 on admission with a followup of 1.7. Total bilirubin this morning is 0.7. Her direct bilirubin on admission was 1.2. Her AST on admission was 838 and repeat today is 435. Her ALT today is 727. The alkaline phosphatase on admission was 320 and today is 265. Hepatitis serologies are pending. Her COVID test was negative. IMPRESSION: Given the patient's clinical history of her relatively acute onset of abdominal pain, significant rise in her LFTs, and what appears to be a fairly rapid improvement of the LFTs, I suspect she passed a small gallstone. Her negative imaging studies in regard to the biliary tract would support that. At this point, she certainly does not show any signs of cholangitis nor significant findings on her abdominal exam. Given the clinical history, I do not think this represents any other type of chronic liver disease and I do not think this represents any type of acute infectious hepatitis. Given the negative MRCP and resolving clinical picture, I do not think an ERCP is required at this time. However, I would recommend consideration of a cholecystectomy sooner rather than later, so as to prevent further complications of the gallstone disease. I do think that if her LFTs are significantly improved tomorrow, then the cholecystectomy could be performed at that time. I did review this in detail with the patient and she is comfortable with this plan. This has been discussed with Dr. Santillan. Thank you for this consultation. MD LISSETTE Lewis/CHEVY / [id number] MTDD
[2020-11-28 23:33] VITALS: BP 111/66; PULSE 79; RESP 18; TEMP 36.2; O2SAT 96
[2020-11-29] VITALS (18 sets, daily range): BP systolic 103–136; BP diastolic 55–91; PULSE 56–80; RESP 16–20; TEMP 36.1–37.1; O2SAT 96–100
[2020-11-29 06:30] LABS: MANUAL DIFF FLAG NO
[2020-11-29 07:06] LABS: Basophils Percent Auto 0.2 % (0-2); Eosinophils Absolute Auto 0.2 X10*3/uL (0.0-0.4); Eosinophils Percent Auto 1.7 % (0-4); Hemoglobin 12.6 g/dl (12.0-16.0); Imm Gran Abs Auto 0.04 X10*3/uL (0.00-0.03); Imm Gran Pct Auto 0.4 % (0.0-0.4); Lymphocytes Absolute Auto 3.3 X10*3/uL (1.2-4.9); Lymphocytes Percent Auto 37.4 % (20-40); Mean Corpuscular HGB Conc 32.3 g/dl (31.0-35.0); Mean Corpuscular Hemoglobin 25.9 pg (27.0-33.0); Mean Corpuscular Volume 80.2 fL (80-98); Mean Platelet Volume 9.4 fL (9.4-12.3); Monocytes Absolute Auto 0.6 X10*3/uL (0.1-1.2); Monocytes Percent Auto 6.4 % (2-11); Neutrophils Absolute Auto 4.8 X10*3/uL (2.0-8.3); Neutrophils Percent Auto 53.9 % (45-73); Platelet Count 335 X10*3/uL (160-400); Red Blood Count 4.86 X10*6/uL (4.20-5.50); Red Cell Distribution Width 14.5 % (11.0-16.0); White Blood Count 8.9 X10*3/uL (4.8-10.8)
[2020-11-29 07:21] LABS: Alanine Aminotransferase 486 U/L (0-31); Alanine Aminotransferase 489 U/L (0-31); Albumin Level 4.1 g/dL (3.5-5.0); Albumin Level 4.2 g/dL (3.5-5.0); Alkaline Phosphatase 246 U/L (39-117); Alkaline Phosphatase 248 U/L (39-117); Anion Gap 12 (12-20); Aspartate Amino Transferase 131 U/L (5-31); Aspartate Amino Transferase 133 U/L (5-31); Bilirubin Direct 0.3 mg/dL (0.0-0.5); Bilirubin Total 0.4 mg/dL (0.0-1.0); Bilirubin Total 0.5 mg/dL (0.0-1.0); Blood Urea Nitrogen 8 mg/dL (9-16); Carbon Dioxide 24 mmol/L (22-29); Chloride 105 mmol/L (96-108); Creatinine Clr Calc Pharmacy 130.8; Estimated Glomerular Filt Rate > 60; Glucose Fasting 90 mg/dL (60-99); Potassium 4.2 mmol/l (3.3-5.1); Sodium 137 mmol/L (135-145); Total Protein 6.5 g/dL (6.5-8.0); Total Protein 6.6 g/dL (6.5-8.0)
--- NOTE | 2020-11-29 08:07 | PM.EVENT ---
Event Note Date of Service: 11/29/20 Event Note: denies pain no events overnight abd soft, nontender LFTs continue to trend down bili normal will proceed with lap sharron for gallstones with likely passage of stone through CBD explained technique of procedure to pt, reviewed risks, benefits and alternatives images reviewed
--- NOTE | 2020-11-29 11:40 | P.CONAN_ITS ---
[facility] Past Medical History Medical History No known health problems Seizure disorder Social History Social History Household Members: Spouse Housing: House Do you presently have visiting nurse or other home services: No Smoking Status: Never smoker Use of substances other than those prescribed or required for medical reasons: No Currently Displaying Signs/Symptoms of Drug Intoxication Withdrawal: No Have you been hit, kicked, punched, or otherwise hurt by someone within the past year? If so, by whom?: No Do you feel safe in your current relationship?: Yes Is there a partner from a previous relationship who is making you feel unsafe now?: No Are you made to feel afraid or neglected: No Advance Directives: No Advance Directives Information Provided: Yes Do you have thoughts of harming others: None Do you have a plan to hurt others: No Plan Recently lost weight without trying: No service: No Current occupational status: employed Meds Allergies Allergy/AdvReac Type Severity Reaction Status Date / Time fish derived [fish] Allergy Severe Shortness Verified 11/23/20 21:14 of Breath Exam Exam Date and Time: November 29, 2020 1140 Height,Weight and Vital Signs: Height 5 ft 3 in Weight 86.183 kg Last Vital Signs Temp 96.9 F 11/29/20 11:09 Pulse 65 11/29/20 11:09 Resp 18 11/29/20 11:09 BP 114/80 11/29/20 11:09 Pulse Ox 98 11/29/20 11:09 Pertinent Lab Results Pertinent Lab Results: Laboratory Tests 11/27/20 11/27/20 11/27/20 13:49 13:49 13:49 WBC 9.3 RBC 5.34 Hgb 13.8 Hct 42.5 MCV 79.6 L MCH 25.8 L MCHC 32.5 RDW 14.5 Plt Count 358 MPV 9.4 Immature Gran % (Auto) 0.6 H Neut % (Auto) 64.2 Lymph % (Auto) 28.2 [place] % (Auto) 6.1 Eos % (Auto) 0.6 Baso % (Auto) 0.3 Lymph # (Auto) 2.6 [place] # (Auto) 0.6 Eos # (Auto) 0.1 Baso # (Auto) 0.0 Abs Immat Gran (auto) 0.06 H Absolute Neuts (auto) 5.9 Absolute Nucleated RBC 0.000 Nucleated RBC % (auto) 0.0 PT INR Hold Blue Top SEE NOTE Sodium 136 Potassium 4.0 Chloride 103 Carbon Dioxide 25 Anion Gap 12 BUN 8 L Creatinine 0.66 Estim Creat Clear Calc 130.8 Estimated GFR > 60 Random Glucose 97 Fasting Glucose Calcium 9.6 Magnesium 2.1 Iron TIBC % Saturation Unsat Iron Binding Ferritin Total Bilirubin 1.6 H Direct Bilirubin 1.2 H AST 838 H ALT 761 H Alkaline Phosphatase 320 H D Total Protein 7.5 Albumin 4.7 Lipase 34 Urine Color Urine Appearance Urine pH Ur Specific [place] Urine Protein Urine Glucose (UA) Urine Ketones Urine Blood Urine Nitrite Ur Leukocyte Esterase Urine Test COVID-19 ([facility]) COVID-19 Clin Com Hepatitis A IgM Ab Hep Bs Antigen Hep Bs Antibody Hep B Core Total Ab Hepatitis C Ab (EIA) 11/27/20 11/27/20 11/27/20 15:27 15:27 15:27 WBC 8.6 RBC 5.10 Hgb 13.3 Hct 40.9 MCV 80.2 MCH 26.1 L MCHC 32.5 RDW 14.4 Plt Count 339 MPV 9.2 L Immature Gran % (Auto) 0.5 H Neut % (Auto) 65.3 Lymph % (Auto) 26.9 [place] % (Auto) 6.6 Eos % (Auto) 0.5 Baso % (Auto) 0.2 Lymph # (Auto) 2.3 [place] # (Auto) 0.6 Eos # (Auto) 0.0 Baso # (Auto) 0.0 Abs Immat Gran (auto) 0.04 H Absolute Neuts (auto) 5.6 Absolute Nucleated RBC 0.000 Nucleated RBC % (auto) 0.0 PT INR Hold Blue Top SEE NOTE Sodium Potassium Chloride Carbon Dioxide Anion Gap BUN Creatinine Estim Creat Clear Calc Estimated GFR Random Glucose Fasting Glucose Calcium Magnesium Iron TIBC % Saturation Unsat Iron Binding Ferritin Total Bilirubin Direct Bilirubin AST ALT Alkaline Phosphatase Total Protein Albumin Lipase Urine Color Urine Appearance Urine pH Ur Specific [place] Urine Protein Urine Glucose (UA) Urine Ketones Urine Blood Urine Nitrite Ur Leukocyte Esterase Urine Test COVID-19 ([facility]) COVID-19 Clin Com Hepatitis A IgM Ab Nonreactive Hep Bs Antigen Negative Hep Bs Antibody REACTIVE Hep B Core Total Ab Nonreactive Hepatitis C Ab (EIA) Nonreactive 11/27/20 11/27/20 11/27/20 15:27 15:27 15:27 WBC RBC Hgb Hct MCV MCH MCHC RDW Plt Count MPV Immature Gran % (Auto) Neut % (Auto) Lymph % (Auto) [place] % (Auto) Eos % (Auto) Baso % (Auto) Lymph # (Auto) [place] # (Auto) Eos # (Auto) Baso # (Auto) Abs Immat Gran (auto) Absolute Neuts (auto) Absolute Nucleated RBC Nucleated RBC % (auto) PT INR Hold Blue Top Sodium 136 Potassium 4.2 Chloride 105 Carbon Dioxide 22 Anion Gap 13 BUN 7 L Creatinine 0.63 Estim Creat Clear Calc 137.0 Estimated GFR > 60 Random Glucose 90 Fasting Glucose Calcium 8.8 D Magnesium Iron TIBC % Saturation Unsat Iron Binding Ferritin Total Bilirubin 1.7 H Direct Bilirubin AST 832 H ALT 770 H Alkaline Phosphatase 305 H Total Protein 6.9 Albumin 4.3 Lipase Urine Color YELLOW Urine Appearance CLEAR Urine pH 7.5 Ur Specific [place] 1.010 Urine Protein NEG Urine Glucose (UA) NEG Urine Ketones NEG Urine Blood NEG Urine Nitrite NEG Ur Leukocyte Esterase NEG Urine Test NEGATIVE COVID-19 ([facility]) COVID-19 Clin Com Hepatitis A IgM Ab Hep Bs Antigen Hep Bs Antibody Hep B Core Total Ab Hepatitis C Ab (EIA) 11/27/20 11/27/20 11/28/20 15:48 20:27 05:54 WBC 8.2 RBC 4.88 Hgb 12.5 Hct 39.2 MCV 80.3 MCH 25.6 L MCHC 31.9 RDW 14.6 Plt Count 321 MPV 9.4 Immature Gran % (Auto) Neut % (Auto) Lymph % (Auto) [place] % (Auto) Eos % (Auto) Baso % (Auto) Lymph # (Auto) [place] # (Auto) Eos # (Auto) Baso # (Auto) Abs Immat Gran (auto) Absolute Neuts (auto) Absolute Nucleated RBC 0.000 Nucleated RBC % (auto) 0.0 PT 12.5 INR 1.1 Hold Blue Top Sodium Potassium Chloride Carbon Dioxide Anion Gap BUN Creatinine Estim Creat Clear Calc Estimated GFR Random Glucose Fasting Glucose Calcium Magnesium Iron TIBC % Saturation Unsat Iron Binding Ferritin Total Bilirubin Direct Bilirubin AST ALT Alkaline Phosphatase Total Protein Albumin Lipase Urine Color Urine Appearance Urine pH Ur Specific [place] Urine Protein Urine Glucose (UA) Urine Ketones Urine Blood Urine Nitrite Ur Leukocyte Esterase Urine Test COVID-19 ([facility]) Negative COVID-19 Clin Com See Note Hepatitis A IgM Ab Hep Bs Antigen Hep Bs Antibody Hep B Core Total Ab Hepatitis C Ab (EIA) 11/28/20 11/28/20 11/28/20 05:54 05:54 05:54 WBC RBC Hgb Hct MCV MCH MCHC RDW Plt Count MPV Immature Gran % (Auto) Neut % (Auto) Lymph % (Auto) [place] % (Auto) Eos % (Auto) Baso % (Auto) Lymph # (Auto) [place] # (Auto) Eos # (Auto) Baso # (Auto) Abs Immat Gran (auto) Absolute Neuts (auto) Absolute Nucleated RBC Nucleated RBC % (auto) PT 12.7 INR 1.1 Hold Blue Top Sodium 139 Potassium 4.3 Chloride 107 Carbon Dioxide 23 Anion Gap 13 BUN 6 L Creatinine 0.65 Estim Creat Clear Calc 132.9 Estimated GFR > 60 Random Glucose 75 Fasting Glucose Calcium 8.9 Magnesium Iron 214 H TIBC 365 % Saturation 59 H Unsat Iron Binding 151 Ferritin 16 Cancelled Total Bilirubin 0.7 Direct Bilirubin 0.4 AST 435 H ALT 727 H Alkaline Phosphatase 265 H Total Protein 6.3 L Albumin 3.9 Lipase Urine Color Urine Appearance Urine pH Ur Specific [place] Urine Protein Urine Glucose (UA) Urine Ketones Urine Blood Urine Nitrite Ur Leukocyte Esterase Urine Test COVID-19 ([facility]) COVID-19 Clin Com Hepatitis A IgM Ab Hep Bs Antigen Hep Bs Antibody Hep B Core Total Ab Hepatitis C Ab (EIA) 11/29/20 11/29/20 11/29/20 06:09 06:09 06:09 WBC 8.9 RBC 4.86 Hgb 12.6 Hct 39.0 MCV 80.2 MCH 25.9 L MCHC 32.3 RDW 14.5 Plt Count 335 MPV 9.4 Immature Gran % (Auto) 0.4 Neut % (Auto) 53.9 Lymph % (Auto) 37.4 [place] % (Auto) 6.4 Eos % (Auto) 1.7 Baso % (Auto) 0.2 Lymph # (Auto) 3.3 [place] # (Auto) 0.6 Eos # (Auto) 0.2 Baso # (Auto) 0.0 Abs Immat Gran (auto) 0.04 H Absolute Neuts (auto) 4.8 Absolute Nucleated RBC 0.000 Nucleated RBC % (auto) 0.0 PT INR Hold Blue Top Sodium 137 Potassium 4.2 Chloride 105 Carbon Dioxide 24 Anion Gap 12 BUN 8 L Creatinine 0.66 Estim Creat Clear Calc 130.8 Estimated GFR > 60 Random Glucose Fasting Glucose 90 Calcium 9.0 Magnesium Iron TIBC % Saturation Unsat Iron Binding Ferritin Total Bilirubin 0.5 0.4 Direct Bilirubin 0.3 0.3 AST 133 H 131 H ALT 489 H 486 H Alkaline Phosphatase 248 H 246 H Total Protein 6.6 6.5 Albumin 4.2 4.1 Lipase Urine Color Urine Appearance Urine pH Ur Specific [place] Urine Protein Urine Glucose (UA) Urine Ketones Urine Blood Urine Nitrite Ur Leukocyte Esterase Urine Test COVID-19 ([facility]) COVID-19 Clin Com Hepatitis A IgM Ab Hep Bs Antigen Hep Bs Antibody Hep B Core Total Ab Hepatitis C Ab (EIA) Airway Mallampati Class: II TM Dist: >3cm Neck ROM: Full Heart: RRR Lungs: CTA
[2020-11-29] MEDS: Lactated Ringers 1,000 ML 100 ML IVCONT (11:41)
--- NOTE | 2020-11-29 13:33 | PM.OP ---
Brief Operative Note Date of Service: 11/29/20 Pre-op diagnosis: Gallstones Post-op diagnosis: same Procedure: laparoscopic cholecystectomy Implants: None Surgeon: SARA SHERMAN MD Anesthesia: TRISTAN [employer] Analyst: Jesica Munson Estimated blood loss (mL): 10 Pathology: other (gallbladder) Condition: stable Disposition: PACU
[2020-11-29] MEDS: ondansetron HCL 4 MG/2 ML VIAL IVPUSH ×2 (13:54→17:09)
[2020-11-29] MEDS: fentaNYL citrate/PF 100 MCG/2 ML VIAL 25 MCG IVPUSH ×4 (13:55→14:20)
[2020-11-29 14:12] LABS: Ceruloplasmin 27 mg/dL (18-53)
--- NOTE | 2020-11-29 14:28 | OP_ITS ---
SURGEON: Willy Santillan MD INDICATIONS: The patient is a 30-year-old female, who had been admitted because of epigastric pain. Her AST and ALT were markedly elevated, and there was also some mild elevation of her bilirubin. Her CAT scan and ultrasound showed gallstones without cholecystitis. Her pain resolved quickly, and there was note of significant drop in her bilirubin and AST and ALT, so GI was consulted and it was felt that the abnormal LFTs along with her transient pain was probably secondary to passage of stones to the common bile duct from the gallbladder. I therefore offered the patient a cholecystectomy to prevent any further events or episodes. She wanted to proceed prior to discharge home. She understood the technique of procedure as well as risks, benefits, and alternatives. Her mother was also involved in the discussion. PREOPERATIVE DIAGNOSIS: Gallstones with recent abnormal LFTs. POSTOPERATIVE DIAGNOSIS: Gallstones with recent abnormal LFTs. PROCEDURE PERFORMED: Laparoscopic cholecystectomy. ESTIMATED BLOOD LOSS: COMPLICATIONS: ANESTHESIA: ASSISTANTS: SPECIMENS: SUSPECT ARTIST: Jesica Munson PA-C DESCRIPTION OF PROCEDURE: The patient was brought to the operating room, placed supine on the table under general anesthesia via endotracheal tube. The abdomen was prepped and draped in usual sterile fashion. A surgical time-out was done. The patient received Cefotan 2 g IV preoperatively. A small supraumbilical incision was made in the skin using blade #15, it was carried down to full-thickness skin and subcutaneous fat down to the fascia. The fascia was incised. The peritoneum was entered. Through this incision, the Abilio port was introduced. Pneumoperitoneum was introduced to a pressure of 15 mmHg and from here on, the rest of the procedure was done under vision with a 10 mm 0 degree laparoscope. With laparoscopic guidance, proceeded to insert a 5/12 mm port through a small incision in the epigastric area. A 5 mm port was introduced through a small stab incision below the subcostal margin along the anterior axillary line and the midclavicular line. Graspers were placed through these working ports. The patient was placed in head-up and [id number] position. The gallbladder was seen. It was noted to be supple, although distended. I was able to, however, apply a grasper at the fundus and this was used to retract the gallbladder cephalad. There was note of some adhesions on the anterior wall, which we had to carefully lyse using the [place] dissector. Eventually, we were able to expose the entire anterior wall of the gallbladder well. I was able to apply another grasper near the pouch of the gallbladder and this was used to retract the gallbladder laterally. With the gallbladder being retracted in cephalad fashion, we were able to put the area of the cystic duct on stretch. I proceeded to dissect this gently with the [place] dissector to confirm its confluence with the neck of the gallbladder. By doing so, we were able to clearly achieve a critical view of the hepatocystic triangle. I could actually see the cystic artery running alongside the cystic duct, and there were no other tubular structures in the area. We continued to do blunt dissection of the cystic duct and once we confirm its confluence of the neck of the gallbladder, we applied clips with 2 clips applied distally. The cystic duct was transected with clips with Endo scissors. I then applied clips on the cystic artery as well and this was transected between clips. With traction in the gallbladder wall away from the liver bed, proceeded to gently dissect across the hilum with electrocautery spatula. We incised the peritoneum of the gallbladder wall and used the combination of blunt dissection with the tip of the spatula as well as electrocautery to separate the gallbladder from the liver bed along well-defined plane of dissection. We continued to do this form of dissection all the way to the fundus until the entire gallbladder was completely from the liver bed. We proceeded to extract the gallbladder using an endobag through the umbilical incision. We inserted all ports and re-insufflated. We examined the subhepatic space and the liver bed was dry. There was no evidence of any bleeding or any bile leak. I examined all four quadrants and there was no other pathology. Once hemostasis was ensured, proceeded to desufflate the port sites. We removed all ports under vision with the laparoscope. The umbilical port was removed last. The fascia of the umbilical incision was closed with [id number] Dexon 0 stitch. Skin closure was achieved in all incisions using Dexon 4-0 subcuticular running sutures. Steri-Strips and dressings were applied. The procedure was completed. The patient tolerated the procedure well. There were no complications noted. Initial and final counts of sponges and instruments were correct. Estimated blood loss was minimal. The patient was extubated without difficulty and transferred to recovery room with stable vital signs. MD FREDERICK Burrows/CHEVY / [id number] MTDD
--- NOTE | 2020-11-29 14:51 | MHC.CM.PN ---
PT UNDERWENT LAP CHOLEY TODAY, PT HAS NOT RETURNED FROM PACU. PT POSSIBLE DISCHARGE TONIGHT HOME SELF-CARE WITH FAMILY FOR TRANSPORT.
--- NOTE | 2020-11-29 15:49 | PM.EVENT ---
Event Note Date of Service: 11/29/20 Event Note: Underwent laparoscopic cholecystectomy earlier this afternoon she describes some incisional pain she says that she is thinking of going home tonight looks well stable vital signs abdomen soft uneventful surgery okay to DC home tonight if patient wishes to discussed postop care with her her mother Lainey was updated follow-up in the office
[2020-11-29] MEDS: Morphine Sulfate 4 MG/ML CARTRIDGE 3 MG IVPUSH (17:08)
[2020-11-30 20:52] LABS: Anti Nuclear Antibody Screen NEGATIVE (NEGATIVE)
--- NOTE | 2020-12-02 13:18 | PM.DS ---
DS: Providers Provider Date of Service: 12/02/20 Date of admission: 11/27/20 15:07 Primary care physician: None Physician Consults: 11/27/20 15:12 Consult to Gastroenterology Routine Consulting Provider: Robi Vela Reason for consultation: abnormal LFTs DS: Diagnosis Discharge Diagnosis (1) Elevated LFTs: Status: Acute (2) Cholelithiasis: Status: Resolved (3) S/P laparoscopic cholecystectomy: Status: Acute DS: Medications Discharge Medications Home Medications: Previous Rx's Medication Instructions Recorded epinephrine [EpiPen] 0.3 mg IM Q10M PRN #1 ea 11/23/20 omeprazole 40 mg PO DAILY 30 Days #30 cap 11/23/20 ibuprofen 600 mg PO TID PRN #30 tab 11/29/20 oxycodone-acetaminophen [Percocet] 1 tab PO Q4-6H PRN #20 tab 11/29/20 DS: Summary Hospital Course Hospital Course: BRIEF HPI: Karina Strauss is a 30 year old female who presented to the emergency room because of epigastric pain and substernal pain. She describes this as moderate to severe reported it started the night before presentation. The pain improved significantly following administration of pain medication earlier today in the emergency room. She apparently was very tender upon presentation. She was in the emergency room November 23 which was about 4 days ago for the same problem. She described significant substernal pain and epigastric pain. She actually says this was much more severe than today's episode. She was worked up for PE and CT angiogram which is not reveal any obvious pathology. The pain resolved and she says she was fine at home until last night. She was found to have significant elevation of her LFTs and her imaging showed gallstones but was not suggestive of cholecystitis and did not demonstrate biliary ductal dilatation. HOSPITAL COURSE: She was admitted to the surgical service for further evaluation given the significant elevated liver enzymes. GI consult was obtained to help differentiate between passed CBD stone versus parenchymal disease of the liver. MRCP was ordered to further evaluate the biliary system which did not show signs of cholecystitis, choledocolithiasis or biliary ductal dilatation. Her LFTs improved significantly the next day. She was seen by Dr Vela of GI who thought her elevated LFTs were secondary to a passed CBD stone given the acute onset of her symptoms and lab abnormalities with subsequent rapid spontaneous improvement and negative MRCP. Further treatment options were discussed with the patient including proceeding with cholecystectomy and she agreed to proceed. On 11/29/20, a laparoscopic cholecystectomy was performed by Dr. Santillan without complication. THe patient tolerated the procedure well and was admitted back to the medical/surgical floor for observation post op. She was reassessed later that day and was doing well. She had adequate pain control with PO analgesics and was tolerating a solid diet. Her abdomen was benign and dressings c/d/i. She felt ready for discharge. She was discharged to home on 11/29/20 in stable condition. Status at Discharge Functional status at discharge: independent ambulation Overall status at discharge: patient is progressing back to baseline Time Spent with Patient Time attestation: Total time spent providing and/or coordinating discharge services: Discharge coordination time: Greater than 30 minutes Physical Exam Vital Signs: Vital Signs: Last Vital Signs Temp 98.6 F 11/29/20 19:11 Pulse 77 11/29/20 19:11 Resp 20 11/29/20 19:11 BP 118/73 11/29/20 19:11 Pulse Ox 96 11/29/20 19:11 Body Mass Index 33.6 Const: General: comfortable, no acute distress and alert Orientation/consciousness: patient oriented x3 Eyes: Sclerae: sclerae normal Resp: Effort & Inspection: normal respiratory effort Cardio: Rate: regular rate GI: Inspection: Yes incision (bandaids intact, dry) Palpation (GI): Soft to palpation, Tenderness to palpation present (GI) (mild, incisional), no guarding and not rigid Skin: General skin exam: no rashes or lesions noted Neuro: General: patient oriented x3 Extrem: General: Yes no clubbing, cyanosis or edema DS: Data Data Completed and Pending Completed studies during hospitalization [Text1]: Procedures Resection of Gallbladder, Percutaneous Endoscopic Approach (11/27/20) Pending studies at discharge: Pending at discharge 11/29/20 13:14 Surgical [PTH] Routine Labs on day of discharge: Laboratory Tests 11/27/20 11/27/20 11/27/20 13:49 13:49 13:49 WBC 9.3 RBC 5.34 Hgb 13.8 Hct 42.5 MCV 79.6 L MCH 25.8 L MCHC 32.5 RDW 14.5 Plt Count 358 MPV 9.4 Immature Gran % (Auto) 0.6 H Neut % (Auto) 64.2 Lymph % (Auto) 28.2 [place] % (Auto) 6.1 Eos % (Auto) 0.6 Baso % (Auto) 0.3 Lymph # (Auto) 2.6 [place] # (Auto) 0.6 Eos # (Auto) 0.1 Baso # (Auto) 0.0 Abs Immat Gran (auto) 0.06 H Absolute Neuts (auto) 5.9 Absolute Nucleated RBC 0.000 Nucleated RBC % (auto) 0.0 PT INR Hold Blue Top SEE NOTE Sodium 136 Potassium 4.0 Chloride 103 Carbon Dioxide 25 Anion Gap 12 BUN 8 L Creatinine 0.66 Estim Creat Clear Calc 130.8 Estimated GFR > 60 Random Glucose 97 Fasting Glucose Calcium 9.6 Magnesium 2.1 Iron TIBC % Saturation Unsat Iron Binding Ferritin Total Bilirubin 1.6 H Direct Bilirubin 1.2 H AST 838 H ALT 761 H Alkaline Phosphatase 320 H D Total Protein 7.5 Albumin 4.7 Ceruloplasmin Lipase 34 Urine Color Urine Appearance Urine pH Ur Specific [place] Urine Protein Urine Glucose (UA) Urine Ketones Urine Blood Urine Nitrite Ur Leukocyte Esterase Urine Test TALYA Screen TALYA Titer TALYA Titer 2 TALYA Titer 3 TALYA Pattern TALYA Pattern 2 TALYA Pattern 3 COVID-19 ([facility]) COVID-19 Clin Com Hepatitis A IgM Ab Hep Bs Antigen Hep Bs Antibody Hep B Core Total Ab Hepatitis C Ab (EIA) 11/27/20 11/27/20 11/27/20 15:27 15:27 15:27 WBC 8.6 RBC 5.10 Hgb 13.3 Hct 40.9 MCV 80.2 MCH 26.1 L MCHC 32.5 RDW 14.4 Plt Count 339 MPV 9.2 L Immature Gran % (Auto) 0.5 H Neut % (Auto) 65.3 Lymph % (Auto) 26.9 [place] % (Auto) 6.6 Eos % (Auto) 0.5 Baso % (Auto) 0.2 Lymph # (Auto) 2.3 [place] # (Auto) 0.6 Eos # (Auto) 0.0 Baso # (Auto) 0.0 Abs Immat Gran (auto) 0.04 H Absolute Neuts (auto) 5.6 Absolute Nucleated RBC 0.000 Nucleated RBC % (auto) 0.0 PT INR Hold Blue Top SEE NOTE Sodium Potassium Chloride Carbon Dioxide Anion Gap BUN Creatinine Estim Creat Clear Calc Estimated GFR Random Glucose Fasting Glucose Calcium Magnesium Iron TIBC % Saturation Unsat Iron Binding Ferritin Total Bilirubin Direct Bilirubin AST ALT Alkaline Phosphatase Total Protein Albumin Ceruloplasmin Lipase Urine Color Urine Appearance Urine pH Ur Specific [place] Urine Protein Urine Glucose (UA) Urine Ketones Urine Blood Urine Nitrite Ur Leukocyte Esterase Urine Test TALYA Screen TALYA Titer TALYA Titer 2 TALYA Titer 3 TALYA Pattern TALYA Pattern 2 TALYA Pattern 3 COVID-19 ([facility]) COVID-19 Clin Com Hepatitis A IgM Ab Nonreactive Hep Bs Antigen Negative Hep Bs Antibody REACTIVE Hep B Core Total Ab Nonreactive Hepatitis C Ab (EIA) Nonreactive 11/27/20 11/27/20 11/27/20 15:27 15:27 15:27 WBC RBC Hgb Hct MCV MCH MCHC RDW Plt Count MPV Immature Gran % (Auto) Neut % (Auto) Lymph % (Auto) [place] % (Auto) Eos % (Auto) Baso % (Auto) Lymph # (Auto) [place] # (Auto) Eos # (Auto) Baso # (Auto) Abs Immat Gran (auto) Absolute Neuts (auto) Absolute Nucleated RBC Nucleated RBC % (auto) PT INR Hold Blue Top Sodium 136 Potassium 4.2 Chloride 105 Carbon Dioxide 22 Anion Gap 13 BUN 7 L Creatinine 0.63 Estim Creat Clear Calc 137.0 Estimated GFR > 60 Random Glucose 90 Fasting Glucose Calcium 8.8 D Magnesium Iron TIBC % Saturation Unsat Iron Binding Ferritin Total Bilirubin 1.7 H Direct Bilirubin AST 832 H ALT 770 H Alkaline Phosphatase 305 H Total Protein 6.9 Albumin 4.3 Ceruloplasmin Lipase Urine Color YELLOW Urine Appearance CLEAR Urine pH 7.5 Ur Specific [place] 1.010 Urine Protein NEG Urine Glucose (UA) NEG Urine Ketones NEG Urine Blood NEG Urine Nitrite NEG Ur Leukocyte Esterase NEG Urine Test NEGATIVE TALYA Screen TALYA Titer TALYA Titer 2 TALYA Titer 3 TALYA Pattern TALYA Pattern 2 TALYA Pattern 3 COVID-19 ([facility]) COVID-19 Clin Com Hepatitis A IgM Ab Hep Bs Antigen Hep Bs Antibody Hep B Core Total Ab Hepatitis C Ab (EIA) 11/27/20 11/27/20 11/28/20 15:48 20:27 05:54 WBC 8.2 RBC 4.88 Hgb 12.5 Hct 39.2 MCV 80.3 MCH 25.6 L MCHC 31.9 RDW 14.6 Plt Count 321 MPV 9.4 Immature Gran % (Auto) Neut % (Auto) Lymph % (Auto) [place] % (Auto) Eos % (Auto) Baso % (Auto) Lymph # (Auto) [place] # (Auto) Eos # (Auto) Baso # (Auto) Abs Immat Gran (auto) Absolute Neuts (auto) Absolute Nucleated RBC 0.000 Nucleated RBC % (auto) 0.0 PT 12.5 INR 1.1 Hold Blue Top Sodium Potassium Chloride Carbon Dioxide Anion Gap BUN Creatinine Estim Creat Clear Calc Estimated GFR Random Glucose Fasting Glucose Calcium Magnesium Iron TIBC % Saturation Unsat Iron Binding Ferritin Total Bilirubin Direct Bilirubin AST ALT Alkaline Phosphatase Total Protein Albumin Ceruloplasmin Lipase Urine Color Urine Appearance Urine pH Ur Specific [place] Urine Protein Urine Glucose (UA) Urine Ketones Urine Blood Urine Nitrite Ur Leukocyte Esterase Urine Test TALYA Screen TALYA Titer TALYA Titer 2 TALYA Titer 3 TALYA Pattern TALYA Pattern 2 TALYA Pattern 3 COVID-19 ([facility]) Negative COVID-19 Clin Com See Note Hepatitis A IgM Ab Hep Bs Antigen Hep Bs Antibody Hep B Core Total Ab Hepatitis C Ab (EIA) 11/28/20 11/28/20 11/28/20 05:54 05:54 05:54 WBC RBC Hgb Hct MCV MCH MCHC RDW Plt Count MPV Immature Gran % (Auto) Neut % (Auto) Lymph % (Auto) [place] % (Auto) Eos % (Auto) Baso % (Auto) Lymph # (Auto) [place] # (Auto) Eos # (Auto) Baso # (Auto) Abs Immat Gran (auto) Absolute Neuts (auto) Absolute Nucleated RBC Nucleated RBC % (auto) PT 12.7 INR 1.1 Hold Blue Top Sodium 139 Potassium 4.3 Chloride 107 Carbon Dioxide 23 Anion Gap 13 BUN 6 L Creatinine 0.65 Estim Creat Clear Calc 132.9 Estimated GFR > 60 Random Glucose 75 Fasting Glucose Calcium 8.9 Magnesium Iron 214 H TIBC 365 % Saturation 59 H Unsat Iron Binding 151 Ferritin 16 Total Bilirubin 0.7 Direct Bilirubin 0.4 AST 435 H ALT 727 H Alkaline Phosphatase 265 H Total Protein 6.3 L Albumin 3.9 Ceruloplasmin Lipase Urine Color Urine Appearance Urine pH Ur Specific [place] Urine Protein Urine Glucose (UA) Urine Ketones Urine Blood Urine Nitrite Ur Leukocyte Esterase Urine Test TALYA Screen NEGATIVE TALYA Titer TNP TALYA Titer 2 TNP TALYA Titer 3 TNP TALYA Pattern TNP TALYA Pattern 2 TNP TALYA Pattern 3 TNP COVID-19 ([facility]) COVID-19 Clin Com Hepatitis A IgM Ab Hep Bs Antigen Hep Bs Antibody Hep B Core Total Ab Hepatitis C Ab (EIA) 11/28/20 11/28/20 11/29/20 05:54 05:54 06:09 WBC RBC Hgb Hct MCV MCH MCHC RDW Plt Count MPV Immature Gran % (Auto) Neut % (Auto) Lymph % (Auto) [place] % (Auto) Eos % (Auto) Baso % (Auto) Lymph # (Auto) [place] # (Auto) Eos # (Auto) Baso # (Auto) Abs Immat Gran (auto) Absolute Neuts (auto) Absolute Nucleated RBC Nucleated RBC % (auto) PT INR Hold Blue Top Sodium 137 Potassium 4.2 Chloride 105 Carbon Dioxide 24 Anion Gap 12 BUN 8 L Creatinine 0.66 Estim Creat Clear Calc 130.8 Estimated GFR > 60 Random Glucose Fasting Glucose 90 Calcium 9.0 Magnesium Iron TIBC % Saturation Unsat Iron Binding Ferritin Cancelled Total Bilirubin 0.5 Direct Bilirubin 0.3 AST 133 H ALT 489 H Alkaline Phosphatase 248 H Total Protein 6.6 Albumin 4.2 Ceruloplasmin 27 Lipase Urine Color Urine Appearance Urine pH Ur Specific [place] Urine Protein Urine Glucose (UA) Urine Ketones Urine Blood Urine Nitrite Ur Leukocyte Esterase Urine Test TALYA Screen TALYA Titer TALAY Titer 2 TALYA Titer 3 TALYA Pattern TALYA Pattern 2 TALYA Pattern 3 COVID-19 ([facility]) COVID-19 Clin Com Hepatitis A IgM Ab Hep Bs Antigen Hep Bs Antibody Hep B Core Total Ab Hepatitis C Ab (EIA) 11/29/20 11/29/20 06:09 06:09 WBC 8.9 RBC 4.86 Hgb 12.6 Hct 39.0 MCV 80.2 MCH 25.9 L MCHC 32.3 RDW 14.5 Plt Count 335 MPV 9.4 Immature Gran % (Auto) 0.4 Neut % (Auto) 53.9 Lymph % (Auto) 37.4 [place] % (Auto) 6.4 Eos % (Auto) 1.7 Baso % (Auto) 0.2 Lymph # (Auto) 3.3 [place] # (Auto) 0.6 Eos # (Auto) 0.2 Baso # (Auto) 0.0 Abs Immat Gran (auto) 0.04 H Absolute Neuts (auto) 4.8 Absolute Nucleated RBC 0.000 Nucleated RBC % (auto) 0.0 PT INR Hold Blue Top Sodium Potassium Chloride Carbon Dioxide Anion Gap BUN Creatinine Estim Creat Clear Calc Estimated GFR Random Glucose Fasting Glucose Calcium Magnesium Iron TIBC % Saturation Unsat Iron Binding Ferritin Total Bilirubin 0.4 Direct Bilirubin 0.3 AST 131 H ALT 486 H Alkaline Phosphatase 246 H Total Protein 6.5 Albumin 4.1 Ceruloplasmin Lipase Urine Color Urine Appearance Urine pH Ur Specific [place] Urine Protein Urine Glucose (UA) Urine Ketones Urine Blood Urine Nitrite Ur Leukocyte Esterase Urine Test TALYA Screen TALYA Titer TALYA Titer 2 TALYA Titer 3 TALYA Pattern TALYA Pattern 2 TALYA Pattern 3 COVID-19 ([facility]) COVID-19 Clin Com Hepatitis A IgM Ab Hep Bs Antigen Hep Bs Antibody Hep B Core Total Ab Hepatitis C Ab (EIA) Discharge Plan Discharge Patient Disposition: Home, Self-Care Referrals: Willy Santillan MD [Physician] - Physician,None [Primary Care Provider] - Discharge Medications: New oxycodone-acetaminophen [Percocet] 5-325 mg tablet 1 tab PO Q4-6H PRN (Reason: pain) Qty: 20 RF: 0 ibuprofen 600 mg tablet 600 mg PO TID PRN (Reason: pain) Qty: 30 RF: 0 Continued epinephrine [EpiPen] 0.3 mg/0.3 mL auto-injector 0.3 mg IM Q10M PRN (Reason: anaphylaxis) Qty: 1 RF: 0 omeprazole 40 mg capsule,delayed release(DR/EC) 40 mg PO DAILY 30 Days Qty: 30 RF: 0 Discharge Orders: Discharge Order (Routine); Ordered 11/29/20 Ordered By: Willy Santillan Diet: low fat, low cholesterol Activity on Discharge: No heavy lifting Stand Alone Forms: Patient Portal Discharge page, Work/School Release Discharge Date/Time: 11/29/20 20:00 Activity Restrictions/Additional Instructions: If the incision area is tender, you may apply an ice pack for short intervals (No more than 20 minutes on, followed by at least 20 minutes off). Do not apply heat. Do not use creams, lotions, or topical antibiotics unless instructed to do so by your surgeon. These can cause infection or allergic reaction. Ok to shower 24 hours after your surgery. Remove bandaids in 2 days and replace. You have steri strips (small white cloth strips) covering your incision- these will fall off ~1 week. Call Your Doctor If: -Your temperature exceeds 101.5? F -You experience excessive pain or swelling -You have an unexpected reaction to medication -You have excessive bleeding -You experience continued vomiting/nausea -Your incision begins to separate -Your incision shows signs of infection such as increased redness, swelling, excessive pain, drainage (light blood or clear fluid is normal) or heat OK to shower, change dressings daily with BandAids after 24hrs Ffup in office in 2-3 weeks - [phone] Visit Report Forms: Patient Portal Discharge page Care Plan Goals: Return to baseline health and activity following recovery period. Health Concerns: Elevated LFTs, cholelithiasis, likely with passed CBD stone. S/p lap CCY. Plan of Treatment: Discharge to home, f/u in office 2 weeks post operatively.
[2020-12-03 11:07] LABS: Mitochondrial Antibodies NEGATIVE (NEGATIVE)
[2020-12-03 13:07] LABS: Smooth Muscle Antibody <20 U (<20)
== END 2020-11-29 20:00 | disposition home or self-care (01) | DRG 263 ==
LOC: HO.ED 13:32 → HO.S3 15:36
PROVIDERS: Internal Medicine; Physician Assistant Surgical; Admitting Provider Surgery; Emergency Provider Emergency Medicine; Visit Provider Surgery
PROC: 0FT44ZZ Resection of Gallbladder, Percutaneous Endoscopic Approach (ICD-10-PCS; CPT 47562; principal; 2020-11-29 13:20)
DX: K80.20 Calculus of gallbladder without cholecystitis without obstruction (principal); Z20.822 Contact with and (suspected) exposure to COVID-19; Z79.1 Long term (current) use of non-steroidal anti-inflammatories (NSAID); Z79.891 Long term (current) use of opiate analgesic; Z79.899 Other long term (current) drug therapy
CPT/HCPCS: 36415; 74177; 74181; 76700; 80048; 80053; 80076; 81003; 81025; 82390; 82728; 83540; 83690; 83735; 85025; 85027; 85610; 86038; 86039; 86255; 86256; 86704; 86706; 86709; 86803; 87340; 87635; 88304; 96361; 96374; 96375; 99283; 99285; J0131; J1100; J1170; J1885; J2250; J2270; J2405; J3010; Q9967

== ENCOUNTER → 2020-12-12 09:52 | Outpatient (BNVA) | payer BC, SELFPAY | PROVIDERS: PCP Internal Medicine; Visit Provider Surgery ==

== ENCOUNTER 2021-02-07 10:07 | Outpatient (REF) | payer OTHER, SELFPAY ==
[2021-02-07 10:36] LABS: COVID-19 Test Negative (Negative); IDNOW Serial# 55D5AD1C
== END 2021-02-07 10:08 | disposition home or self-care (01) ==
LOC: HO.EMPCOV 10:07
PROVIDERS: Visit Provider Internal Medicine
DX: Z20.822 Contact with and (suspected) exposure to COVID-19 (principal)
CPT/HCPCS: 36415; 87635; C9803

== ENCOUNTER 2022-05-15 18:50 | Outpatient (REF) | payer BC, SELFPAY ==
[2022-05-15 19:46] LABS: Influenza A PCR NEGATIVE (Negative); Influenza B PCR NEGATIVE (Negative); Resp Syncy Virus RNA Qual PCR NEGATIVE (Negative); SARS COV2 PCR INHOUSE NEGATIVE (Negative)
== END 2022-05-15 18:51 | disposition home or self-care (01) ==
LOC: HO.LNP 18:50
PROVIDERS: Visit Provider Nurse Practitioner Family
DX: R09.89 Other specified symptoms and signs involving the circulatory and respiratory systems (principal); Z20.822 Contact with and (suspected) exposure to COVID-19
CPT/HCPCS: 0241U

== ENCOUNTER 2022-07-18 10:09 | Emergency (ER) | payer BC, SELFPAY ==
[2022-07-18 10:17] VITALS: BP 133/82; PULSE 75; RESP 18; TEMP 36.8; O2SAT 98; BMI 35.4
--- NOTE | 2022-07-18 11:04 | ED_ITS ---
HPI - Wound/Laceration General Chief Complaint: Wound/Laceration Stated Complaint: r ring finger laceration Time Seen by Provider: 07/18/22 11:04 Source: patient Mode of arrival: ambulatory Limitations: no limitations History of Present Illness HPI narrative: 32 yo female who is right hand dominant presents with injury to the right 4th digit which occured just prior to arrival when cutting cucumbers. Last tetanus 2020 Related Data Previous Rx's Medication Instructions Recorded epinephrine 0.3 mg/0.3 mL 0.3 mg (0.3 mL) IM Q10M PRN 11/23/20 injection, auto-injector (EpiPen) anaphylaxis #1 ea omeprazole 40 mg capsule,delayed 40 mg PO DAILY 30 days #30 caps 11/23/20 release ibuprofen 600 mg tablet 600 mg PO TID PRN pain #30 tabs 11/29/20 Review of Systems Review of Systems: Yes all other systems are reviewed and are negative Constitutional: Constitutional: Reports no additional constitutional complain ts, Denies chills and Denies fever(s) Cardiovascular: Cardiovascular: Reports no additional cardiovascular complaints and Denies acrocyanosis Musculoskeletal: Musculoskeletal: Reports no additional musculoskeletal complaints, Denies arthralgias, Denies joint swelling, Denies limited range of motion, Denies numbness and Denies tingling Integumentary/Breasts: Skin/Breast: Reports wounds Neurologic: Denies numbness and Denies tingling PMFSH Past Medical History Attestation statement: The following information was validated with the patient. Source: old records reviewed and nursing notes reviewed Medical History No known health problems Seizure disorder Social History Social History Household Members: Spouse Housing: House Do you presently have visiting nurse or other home services: No Advance Directives: Yes Advance Directives on File: Yes Advance Directives Date on File: 12/02/20 service: No Current occupational status: employed Physical Exam Vital Signs: Vital Signs: Last Vital Signs Temp 98.3 F 07/18/22 10:17 Pulse 75 07/18/22 10:17 Resp 18 07/18/22 10:17 BP 133/82 07/18/22 10:17 Pulse Ox 98 07/18/22 10:17 O2 Del Method 07/18/22 10:17 BMI result Body Mass Index 35.4 Const: General: healthy appearing Orientation/consciousness: patient oriented x3 Limitations: no limitations HEENT: Head: Yes normal to inspection Eyes: General: appearance normal, both eyes and all related structures Resp: Effort & Inspection: normal respiratory effort Cardio: Peripheral pulses: Peripheral pulses 2+ throughout Skin: General skin exam: no rashes or lesions noted Neuro: General: patient oriented x3 Cognition (Neuro): normal cognition Gait exam (Neuro): Normal gait present Extrem: Hand/finger images: 1. Over the lateral nail beds there is a segment of the lateral nail which is absent with avulsion of the skin with active bleeding. FROM of the digit NV intact distally Course Course Course Narrative: Wound was cleansed prior to arrival by the patient. Surgicell with direct pressure applied with hemostasis. MDM - Wound/Laceration MDM Narrative Medical decision making narrative: Avulsion to the right index finger including the lateral nail Differential Diagnosis Differential diagnosis: Likely laceration and avulsion of skin Medical Records Attestation: I reviewed the patient's medical records. Lab Data Attestation: I reviewed the patient's lab results. Discharge Plan Discharge Clinical Impression: Avulsion of skin, Avulsion of nail of right ring finger Patient Disposition: Home, Self-Care Instructions: Nail Avulsion (ED) Prescriptions: No Action ibuprofen 600 mg tablet 600 mg PO TID PRN (Reason: pain) Qty: 30 0RF epinephrine [EpiPen] 0.3 mg/0.3 mL auto-injector 0.3 mg IM Q10M PRN (Reason: anaphylaxis) Qty: 1 0RF Rx Instructions: for 2 doses omeprazole 40 mg capsule,delayed release(DR/EC) 40 mg PO DAILY 30 Days Qty: 30 0RF Referrals: Physician,Unknown J [Primary Care Provider] - Interventions: ED Discharge Assessment Last Done: 07/18/22 12:45 Discharge Date/Time: 07/18/22 12:46
== END 2022-07-18 12:46 | disposition home or self-care (01) ==
PROVIDERS: Emergency Provider Emergency Medicine
DX: S61.314A Laceration without foreign body of right ring finger with damage to nail, initial encounter (principal); W26.0XXA Contact with knife, initial encounter; Y93.G1 Activity, food preparation and clean up; Y92.010 Kitchen of single-family (private) house as the place of occurrence of the external cause; Y99.9 Unspecified external cause status
CPT/HCPCS: 99282; 99283

== ENCOUNTER 2022-10-16 17:27 | Outpatient (REF) | payer BC, SELFPAY ==
[2022-10-16 18:31] LABS: Influenza A PCR NEGATIVE (Negative); Influenza B PCR NEGATIVE (Negative); Resp Syncy Virus RNA Qual PCR NEGATIVE (Negative); SARS COV2 PCR INHOUSE POSITIVE (Negative)
== END 2022-10-16 17:28 | disposition home or self-care (01) ==
LOC: HO.LAB 17:27
PROVIDERS: Visit Provider Physician Assistant Medical
DX: Z20.822 Contact with and (suspected) exposure to COVID-19 (principal)
CPT/HCPCS: 0241U

== ENCOUNTER 2023-10-31 04:34 | Emergency (ER) | payer BC, SELFPAY ==
--- NOTE | ~2023-10-31 | XR_ITS ---
EXAMINATION: XR CHEST CLINICAL INFORMATION: Cough and congestion COMPARISON: None available. TECHNIQUE: Frontal view of the chest was obtained. FINDINGS: Diffuse bronchial wall thickening. No parenchymal consolidation. No pleural effusion. No pneumothorax. Cardiomediastinal silhouette and pulmonary vascularity are within normal limits. No acute osseous abnormalities. XR/XR chest 1V IMPRESSION: * Diffuse bronchial wall thickening suggestive of bronchitis and/or asthma. * No focal consolidation.
[2023-10-31 04:35] VITALS: BP 112/68; PULSE 93; RESP 16; TEMP 37.1; O2SAT 97; BMI 38.1
--- NOTE | 2023-10-31 04:51 | ED.URI ---
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 of nasal congestion cough for last 3 days getting worse has mucopurulent phlegm and low-grade fever at home temperature was 100.2 degrees Related Data Previous Rx's Medication Instructions Recorded epinephrine 0.3 mg/0.3 mL 0.3 mg (0.3 mL) IM Q10M PRN 11/23/20 injection, auto-injector (EpiPen) anaphylaxis #1 ea omeprazole 40 mg capsule,delayed 40 mg PO DAILY 30 days #30 caps 11/23/20 release ibuprofen 600 mg tablet 600 mg PO TID PRN pain #30 tabs 11/29/20 albuterol sulfate 90 mcg/actuation 2 puff inhalation Q4-6H PRN 10/31/23 aerosol inhaler (ProAir HFA) shortness of breath or wheezing #8.5 grams cefuroxime axetil 500 mg tablet 500 mg PO BID 10 days #20 tabs 10/31/23 codeine 10 mg-guaifenesin 100 mg/5 10 ml PO Q6H PRN cough #237 mL 10/31/23 mL oral liquid doxycycline hyclate 100 mg tablet 100 mg PO BID #20 tabs 10/31/23 Allergies Allergy/AdvReac Type Severity Reaction Status Date / Time No Known Allergies Allergy Verified 10/31/23 04:44 Review of Systems Review of Systems: Yes all other systems are reviewed and are negative PMFSH Past Medical History Medical History No known health problems Seizure disorder Social History Social History Household Members: Spouse Housing: House Do you presently have visiting nurse or other home services: No Advance Directives: Yes Advance Directives on File: Yes Advance Directives Date on File: 12/02/20 service: No Current occupational status: employed Physical Exam Vital Signs: Vital Signs: Last Vital Signs Temp 98.3 F 10/31/23 05:31 Pulse 76 10/31/23 05:31 Resp 20 10/31/23 05:31 BP 105/60 10/31/23 05:31 Pulse Ox 96 10/31/23 05:31 O2 Del Method Room Air 10/31/23 05:31 BMI result Body Mass Index 38.1 Appearance: Alert. Oriented X3. No acute distress. ENT: Pharynx normal. Oral Mucosa moist Neck: Normal inspection. Neck supple. CVS: Normal heart rate and rhythm. Pulses normal. Respiratory: No respiratory distress. Equal air entry bilateral, no wheezing/rales/rhonchi prolonged expiration with frequent cough Abdomen: Soft and nontender. Bowel sounds are present, no mass palpable, no CVA tenderness Skin: Skin warm and dry. Normal skin color. Normal skin turgor. Extremities: No lower extremity edema. No calf tenderness Neuro: Oriented X 3. Medications Administered Discontinued Medications Generic Name Dose Route Start Last Admin Trade Name Freq PRN Reason Stop Dose Admin Cefuroxime Axetil 500 mg 10/31/23 05:49 10/31/23 06:02 Cefuroxime Axetil 500 Mg Tablet PO 10/31/23 05:50 500 mg ONCE ONE Administration Albuterol Sulfate 2.5 mg/ 0 mg 10/31/23 04:49 10/31/23 05:02 Albuterol/Ipratropium 3 ml INHALE 10/31/23 04:50 5 dose ONCE ONE Administration Doxycycline Monohydrate 100 mg 10/31/23 05:49 10/31/23 06:02 Doxycycline Monohydrate 100 Mg Capsule PO 10/31/23 05:50 100 mg ONCE ONE Administration Guaifenesin/Codeine Phosphate 10 ml 10/31/23 04:51 10/31/23 04:58 Guaifen/Codeine Sf 200/20/10ml 10 Ml Liquid PO 10/31/23 04:52 10 ml ONCE ONE Administration Medical Decision Making Medical Decision Making [facility] Narrative: Patient with bronchitis chest x-ray negative for pneumonia COVID flu negative history of same in the past discharge patient home on doxycycline and Ceftin Lab Data [facility] Lab Attestation statement: I reviewed the patient's lab results. Labs: Lab Results 10/31/23 Range/Units 04:53 Influenza Type A (PCR) NEGATIVE (Negative) Influenza Type B (PCR) NEGATIVE (Negative) RSV RNA Qual (PCR) NEGATIVE (Negative) SARS-CoV-2 RNA (RT-PCR) NEGATIVE (Negative) Independent Interpretation I performed an independent interpretation of an: Plain X-Ray Radiology Impression Discussion of test interpretation with radiology: I have reviewed the radiologist's reading. Radiologist Impression: XR/XR chest 1V IMPRESSION: * Diffuse bronchial wall thickening suggestive of bronchitis and/or asthma. * No focal consolidation. External Record Review External record reviewed: Outpatient record Discharge Plan Discharge Clinical Impression: Bronchitis Patient Disposition: Home, Self-Care Instructions: Acute Bronchitis (ED) Additional Instructions: Take antibiotic as prescribed Use inhaler and cough syrup as prescribed Follow with PCP if not better Prescriptions: New codeine-guaifenesin 10-100 mg/5 mL liquid 10 ml PO Q6H PRN (Reason: cough) Qty: 237 0RF cefuroxime axetil 500 mg tablet 500 mg PO BID 10 Days Qty: 20 0RF albuterol sulfate [ProAir HFA] 90 mcg/actuation HFA aerosol inhaler 2 puff inhalation Q4-6H PRN (Reason: shortness of breath or wheezing) Qty: 8.5 0RF doxycycline hyclate 100 mg tablet 100 mg PO BID Qty: 20 0RF No Action ibuprofen 600 mg tablet 600 mg PO TID PRN (Reason: pain) Qty: 30 0RF epinephrine [EpiPen] 0.3 mg/0.3 mL auto-injector 0.3 mg IM Q10M PRN (Reason: anaphylaxis) Qty: 1 0RF Rx Instructions: for 2 doses omeprazole 40 mg capsule,delayed release(DR/EC) 40 mg PO DAILY 30 Days Qty: 30 0RF
[2023-10-31] MEDS: guaiFEN/Codeine SF 200/20/10ML 10 ML LIQUID PO (04:58)
[2023-10-31] MEDS: Albuterol Sulfate 2.5 MG, Albuterol/Iprat 2.5/0.5MG 3 ML 3 ML INHALE (05:02)
[2023-10-31 05:04] VITALS: PULSE 95; RESP 16; O2SAT 98
[2023-10-31 05:31] VITALS: BP 105/60; PULSE 76; RESP 20; TEMP 36.8; O2SAT 96
[2023-10-31 05:35] LABS: Influenza A PCR NEGATIVE (Negative); Influenza B PCR NEGATIVE (Negative); Resp Syncy Virus RNA Qual PCR NEGATIVE (Negative); SARS COV2 PCR INHOUSE NEGATIVE (Negative)
[2023-10-31] MEDS: Doxycycline Monohydrate 100 MG CAPSULE PO (06:02)
[2023-10-31] MEDS: cefuroxime axetiL 500 MG TABLET PO (06:02)
[2023-10-31 06:09] VITALS: BP 124/75; PULSE 99; RESP 16; TEMP 37.1; O2SAT 97
== END 2023-10-31 06:25 | disposition home or self-care (01) ==
PROVIDERS: Emergency Provider Internal Medicine
DX: J40 Bronchitis, not specified as acute or chronic (principal); Z11.52 Encounter for screening for COVID-19; Z20.828 Contact with and (suspected) exposure to other viral communicable diseases
CPT/HCPCS: 0241U; 71045; 94640; 99284

== ENCOUNTER 2025-01-23 12:56 | Emergency (ER) | payer BC, SELFPAY ==
--- NOTE | ~2025-01-23 | CT_ITS ---
EXAMINATION: CT HEAD WITHOUT IV CONTRAST HISTORY: persistent headaches. TECHNIQUE: Unenhanced helical CT of the head was performed per standard departmental protocol. Coronal and sagittal reformats of the head were also evaluated. One or more of the following techniques was used for dose reduction: Automated exposure control, adjustment of the mA and/or kV according to patient size, use of iterative reconstruction technique. DLP: 672 mGy-cm COMPARISON: There are no prior studies for comparison. FINDINGS: BRAIN: The brain parenchyma is unremarkable. There is normal post/white differentiation. The ventricular system is normal in size and configuration. There is no mass effect or midline shift. No intra- or extra-axial fluid collections are identified. SINUSES: The visualized paranasal sinuses are clear. The mastoid air cells and middle ear cavities are well pneumatized. ORBITS: The visualized orbits are unremarkable. BONES/SOFT TISSUES: The extracranial soft tissues are unremarkable. The calvarium is intact. No suspicious lytic or sclerotic lesions. CT/CT head/brain wo IV con IMPRESSION: Unremarkable unenhanced head CT. Electronically signed by: Robi Granados MD 01/23/2025 03:34 PM EDT
--- NOTE | ~2025-01-23 | XR_ITS ---
EXAMINATION: XR NECK SOFT TISSUE HISTORY: throat discomfort COMPARISON: There are no prior studies for comparison. FINDINGS: AP and lateral views of the soft tissues of the neck are submitted. The epiglottis and aryepiglottic folds are unremarkable in appearance. The airway is patent. There is no prevertebral soft tissue swelling. XR/XR soft tissue neck IMPRESSION: Unremarkable examination of the soft tissues of the neck. Electronically signed by: Robi Granados MD 01/23/2025 03:29 PM EDT
[2025-01-23 13:02] VITALS: BP 141/91; PULSE 80; RESP 20; TEMP 36.4; O2SAT 99; BMI 38.1
--- NOTE | 2025-01-23 13:16 | ED.GENADULT ---
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 Patient states that on January 08 she developed ear pain. She states that periodically she would have left ear pain and right ear pain. On January 13 she then was seen by an urgent care virtually and they had prescribed her a course of antibiotics. She completed the full course however states that her symptoms did not change. She states that she has pain that starts in her bilateral TMJ region, goes down her jaw and then into her neck. She states that you symptoms are alleviated after taking Tylenol and Motrin however states that she was concerned that she was taking this on a regular basis now, and she is not sure what exactly is causing her to have the symptoms. She denies any fevers, chills, chest pain, shortness for breath, abdominal pain, nausea, vomiting or diarrhea. She does report some weight loss however states that she has been changing her dietary habits. She states that 2 years ago she had blood work for genetic testing as her cousin had at 45 after being diagnosed with pseudomyxoma peritonei. 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 She also mentions that her friend is very ill with esophageal cancer. No other complaints or concerns at this time. MD complaint: Sore throat, inner ear pain, fogginess Onset (ago): day(s) Radiation: non-radiation Severity: mild Quality: aching Pain Consistency: constant Relieving factors: medication Exacerbating factors: none Associated symptoms: denies other symptoms Related Data Previous Rx's ?Medication ?Instructions ?Recorded epinephrine 0.3 mg/0.3 mL 0.3 mg (0.3 mL) IM Q10M PRN 11/23/20 injection, auto-injector (EpiPen) anaphylaxis #1 ea omeprazole 40 mg capsule,delayed 40 mg PO DAILY 30 days #30 caps 11/23/20 release ibuprofen 600 mg tablet 600 mg PO TID PRN pain #30 tabs 11/29/20 albuterol sulfate 90 mcg/actuation 2 puff inhalation Q4-6H PRN 10/31/23 aerosol inhaler (ProAir HFA) shortness of breath or wheezing #8.5 grams cefuroxime axetil 500 mg tablet 500 mg PO BID 10 days #20 tabs 10/31/23 codeine 10 mg-guaifenesin 100 mg/5 10 ml PO Q6H PRN cough #237 mL 10/31/23 mL oral liquid doxycycline hyclate 100 mg tablet 100 mg PO BID #20 tabs 10/31/23 ondansetron 4 mg disintegrating 4 mg PO Q6-8H PRN nausea and 10/31/23 tablet vomiting #10 tabs Allergies Allergy/AdvReac Type Severity Reaction Status Date / Time No Known Allergies Allergy Verified 01/23/25 13:06 Review of Systems Review of Systems: Yes all other systems are reviewed and are negative Constitutional: Constitutional: Reports as per [facility] Past Medical History Attestation statement: The following information was validated with the patient. Medical History Seizure disorder No known health problems Social History Social History Household Members: Spouse Housing: House Do you presently have visiting nurse or other home services: No Advance Directives Date on File: 12/02/20 service: No Current occupational status: employed Physical Exam ED Vital Signs: Vital Signs - 24 hr 01/23/25 13:02 01/23/25 16:22 Temperature 97.5 F 97.5 F Pulse Rate 80 80 Respiratory Rate 20 20 Blood Pressure 141/91 H 141/91 H Pulse Oximetry 99 99 Oxygen Delivery Method Room Air Room Air BMI result Body Mass Index 38.1 Const General: cooperative, comfortable and no acute distress Orientation/consciousness: patient oriented x3 Limitations: no limitations HENMT Other: No mastoid tenderness. Mild tenderness palpation along the bilateral TMJ R TM with scaarring noted, no erythema or edema. L TM unremarkable. No pain with palpation over the tragus. Head: Yes normal to inspection, Yes normocephalic and Yes atraumatic Ears: hearing grossly normal bilaterally and TM's normal bilaterally General nose exam: Normal external nose present Face and sinus: Yes normal facial exam Mouth: Normal oral and palatal mucosa present, oropharynx normal and moist mucous membranes Throat: Yes posterior oropharynx normal Eyes General: appearance normal, both eyes and all related structures Eyelids: Yes eyelids normal Conjunctivae: conjunctivae normal Sclerae: sclerae normal Pupils: Equal, round and reactive pupils present EOM: EOMs intact bilaterally Neck Neck: Yes normal visual inspection, Yes full ROM and Yes no lymphadenopathy Lymphatic: no lymphadenopathy noted Chest Chest palpation & inspection: normal inspection of the chest Resp Effort & Inspection: normal respiratory effort and able to speak in complete sentences Auscultation: clear to auscultation bilaterally, no crackles, no rales, no rhonchi and no wheezes Cardio Rate: regular rate Rhythm: regular rhythm Heart sounds: S1 normal heart sound present and S2 normal heart sound present GI Inspection: Yes normal to inspection Skin General skin exam: no rashes or lesions noted Trauma: no lacerations or abrasions Wounds: no wounds Neuro General: patient oriented x3 and moves all extremities Cranial nerves: Yes Equal, round and reactive pupils present Extrem General: Yes normal to inspection Right upper extremity: normal to inspection Left upper extremity: normal to inspection Right lower extremity: normal to inspection Left lower extremity: normal to inspection Course Course Course Narrative: This is a rapid medical exam performed by Lorena Trinh PA-C. The patient is a 34-year-old female who presents with multiple complaints. Patient states over the past 3 weeks she has had right ear pain, neck pain and sore throat. Difficult for the patient to discern if the throat pain radiates to the ear or the ear pain radiates to the throat. Pain worse with lateral movement of the neck. Denies fever. Patient was seen at urgent care weeks ago, had a viral panel and a strep screen, everything was negative, she was placed on an empiric around of amoxicillin. On exam, the patient's oropharynx is erythematous with prominent tonsils, no exudate, the right TM shows an old scar from a tube, the tympanic membrane itself appears slightly dull, no overlying erythema or exudate, there was no exudate or erythema in the external ear canal, no tragal tenderness. No cervical lymphadenopathy. No tenderness over the mastoid. The patient was actively asking for imaging, due to having a ?cancer gene history?. For now I am obtaining basic labs a viral panel and a strep screen. The patient was stable and can return to the waiting room pending her full medical assessment. Medical Decision Making Medical Decision Making [facility] Narrative: This is a 34-year-old female who presents emergency department with complaints of bilateral ear pain, neck pain, and ?fogginess for the last 2-3 weeks. She was treated with a course of antibiotics through an urgent care several weeks ago without any improvement. On arrival, blood pressure mildly elevated at 140 1/91, all other vital signs within normal limits. She was neurologically intact with no focal deficits on examination. Patient has mild tenderness palpation along her bilateral TMJ, with the ability to open and close jaw. Patient does express concerns in regards to malignant marker. I discussed this case with my attending physician, Dr. Gunn. Recommending CT of the head, and soft tissue neck x-ray. Plan: Labs, CT head, soft tissue neck x-ray Differential Diagnosis Differential Diagnoses: The differential diagnosis associated with the presentation includes TMJ, Eustachian tube dysfunction, otitis media, otitis externa, otalgia, mass-unlikely Lab Data [facility] Lab Attestation statement: I reviewed the patient's lab results. Patient with no leukocytosis, stable H&H, chemistry with no significant electrolyte derangement. Random glucose elevated at 124, TSH 0.93, viral swabs negative. 01/23/25 13:24 01/23/25 13:24 Labs: Lab Results 01/23/25 Range/Units 13:24 WBC 9.9 (4.8-10.8) X10*3/uL RBC 4.86 (4.20-5.50) X10*6/uL Hgb 13.8 (12.0-16.0) g/dl Hct 40.1 (37.0-47.0) % MCV 82.5 (80.0-98.0) fL MCH 28.4 (27.0-33.0) pg MCHC 34.4 (31.0-35.0) g/dl RDW 13.7 (11.0-16.0) % Plt Count 348 (160-400) X10*3/uL MPV 9.4 (9.4-12.3) fL Immature Gran % (Auto) 0.4 (0.0-0.4) % Neut % (Auto) 57.8 (45-73) % Lymph % (Auto) 34.2 (20-40) % [place] % (Auto) 4.9 (2-11) % Eos % (Auto) 2.3 (0-4) % Baso % (Auto) 0.4 (0-2) % Lymph # (Auto) 3.4 (1.2-4.9) X10*3/uL [place] # (Auto) 0.5 (0.1-1.2) X10*3/uL Eos # (Auto) 0.2 (0.0-0.4) X10*3/uL Baso # (Auto) 0.0 (0.0-0.2) X10*3/uL Abs Immat Gran (auto) 0.04 H (0.00-0.03) X10*3/uL Absolute Neuts (auto) 5.7 (2.0-8.3) x10*3/uL Absolute Nucleated RBC 0.000 (0.0-0.012) X10*3/uL Nucleated RBC % (auto) 0.0 (0.0-0.2) /100WBC Sodium 140 (135-145) mmol/L Potassium 3.8 (3.3-5.1) mmol/L Chloride 107 (96-108) mmol/L Carbon Dioxide 25 (22-29) mmol/L Anion Gap 12 (12-20) BUN 11 (9-16) mg/dL Creatinine 0.66 (0.5-1.4) mg/dL Estim Creat Clear Calc 134.8 Estimated GFR > 60 Random Glucose 124 H (60-115) mg/dL Calcium 9.7 D (8.4-10.2) mg/dL Magnesium 1.9 (1.6-2.6) mg/dL TSH 0.93 (0.32-4.0) uIU/mL Beta HCG, Quant < 2 mIU/mL Influenza Type A (PCR) NEGATIVE (Negative) Influenza Type B (PCR) NEGATIVE (Negative) RSV RNA Qual (PCR) NEGATIVE (Negative) SARS-CoV-2 RNA (RT-PCR) NEGATIVE (Negative) S. pyogenes GrpA TIFFANIE Negative (Negative) Radiology Impression Discussion of test interpretation with radiology: I have reviewed the radiologist's reading. Radiologist Impression: Report Number: [id number]: Total DLP = 672.00 mGy-cm EXAMINATION: CT HEAD WITHOUT IV CONTRAST HISTORY: persistent headaches. TECHNIQUE: Unenhanced helical CT of the head was performed per standard departmental protocol. Coronal and sagittal reformats of the head were also evaluated. One or more of the following techniques was used for dose reduction: Automated exposure control, adjustment of the mA and/or kV according to patient size, use of iterative reconstruction technique. DLP: 672 mGy-cm COMPARISON: There are no prior studies for comparison. FINDINGS: BRAIN: The brain parenchyma is unremarkable. There is normal post/white differentiation. The ventricular system is normal in size and configuration. There is no mass effect or midline shift. No intra- or extra-axial fluid collections are identified. SINUSES: The visualized paranasal sinuses are clear. The mastoid air cells and middle ear cavities are well pneumatized. ORBITS: The visualized orbits are unremarkable. BONES/SOFT TISSUES: The extracranial soft tissues are unremarkable. The calvarium is intact. No suspicious lytic or sclerotic lesions. CT/CT head/brain wo IV con IMPRESSION: Unremarkable unenhanced head CT. Electronically signed by: Robi Granados MD 01/23/2025 03:34 PM EDT RP Dictated By: Robi Granados MD EXAMINATION: XR NECK SOFT TISSUE HISTORY: throat discomfort COMPARISON: There are no prior studies for comparison. FINDINGS: AP and lateral views of the soft tissues of the neck are submitted. The epiglottis and aryepiglottic folds are unremarkable in appearance. The airway is patent. There is no prevertebral soft tissue swelling. XR/XR soft tissue neck IMPRESSION: Unremarkable examination of the soft tissues of the neck. Electronically signed by: Robi Granados MD 01/23/2025 03:29 PM EDT RP Dictated By: Robi Granados MD Discharge Plan Discharge Clinical Impression: Otalgia Patient Disposition: Home, Self-Care Instructions: Earache (ED) Additional Instructions: Your blood work today was reassuring. You have no signs of anemia. Your thyroid is within normal limits. You tested negative for flu, RSV, COVID, and strep throat. Your CT of your head reveals no acute findings. Your neck x-ray was unremarkable. You may have symptoms of TMJ or Eustachian tube dysfunction. Please continue alternating between ibuprofen and or Tylenol as needed for pain and symptoms. 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 Drink plenty of fluids get plenty of rest. If any new or worsening symptoms occur including but not limited to severe headache, dizziness, blurred vision, chest pain, shortness of breath, please seek emergent care. ENT [facility] [phone] Prescriptions: No Action ibuprofen 600 mg tablet 600 mg PO TID PRN (Reason: pain) Qty: 30 0RF epinephrine [EpiPen] 0.3 mg/0.3 mL auto-injector 0.3 mg IM Q10M PRN (Reason: anaphylaxis) Qty: 1 0RF Rx Instructions: for 2 doses omeprazole 40 mg capsule,delayed release(DR/EC) 40 mg PO DAILY 30 Days Qty: 30 0RF codeine-guaifenesin 10-100 mg/5 mL liquid 10 ml PO Q6H PRN (Reason: cough) Qty: 237 0RF cefuroxime axetil 500 mg tablet 500 mg PO BID 10 Days Qty: 20 0RF albuterol sulfate [ProAir HFA] 90 mcg/actuation HFA aerosol inhaler 2 puff inhalation Q4-6H PRN (Reason: shortness of breath or wheezing) Qty: 8.5 0RF doxycycline hyclate 100 mg tablet 100 mg PO BID Qty: 20 0RF ondansetron 4 mg tablet,disintegrating 4 mg PO Q6-8H PRN (Reason: nausea and vomiting) Qty: 10 0RF Referrals: Jack Nicole [Physician] - Stand Alone Forms: Work/School Release Interventions: ED Discharge Assessment Last Done: 01/23/25 16:22 Discharge Date/Time: 01/23/25 16:22 Print Language: Citizen Of [place]
[2025-01-23 13:28] LABS: MANUAL DIFF FLAG NO
[2025-01-23 13:31] LABS: Basophils Percent Auto 0.4 % (0-2); Eosinophils Absolute Auto 0.2 X10*3/uL (0.0-0.4); Eosinophils Percent Auto 2.3 % (0-4); Hematocrit 40.1 % (37.0-47.0); Hemoglobin 13.8 g/dl (12.0-16.0); Imm Gran Abs Auto 0.04 X10*3/uL (0.00-0.03); Imm Gran Pct Auto 0.4 % (0.0-0.4); Lymphocytes Absolute Auto 3.4 X10*3/uL (1.2-4.9); Lymphocytes Percent Auto 34.2 % (20-40); Mean Corpuscular HGB Conc 34.4 g/dl (31.0-35.0); Mean Corpuscular Hemoglobin 28.4 pg (27.0-33.0); Mean Corpuscular Volume 82.5 fL (80.0-98.0); Mean Platelet Volume 9.4 fL (9.4-12.3); Monocytes Absolute Auto 0.5 X10*3/uL (0.1-1.2); Monocytes Percent Auto 4.9 % (2-11); Neutrophils Absolute Auto 5.7 x10*3/uL (2.0-8.3); Neutrophils Percent Auto 57.8 % (45-73); Platelet Count 348 X10*3/uL (160-400); Red Blood Count 4.86 X10*6/uL (4.20-5.50); Red Cell Distribution Width 13.7 % (11.0-16.0); White Blood Count 9.9 X10*3/uL (4.8-10.8)
[2025-01-23 13:40] LABS: IDNOW Serial# 58CA691E; Strep A Nucleic Acid Negative (Negative)
[2025-01-23 13:52] LABS: Anion Gap 12 (12-20); Blood Urea Nitrogen 11 mg/dL (9-16); Calcium 9.7 mg/dL (8.4-10.2); Carbon Dioxide 25 mmol/L (22-29); Chloride 107 mmol/L (96-108); Creatinine Clr Calc Pharmacy 134.8; Estimated Glomerular Filt Rate > 60; Glucose Random 124 mg/dL (60-115); HCG Quantitative < 2 mIU/mL; Magnesium 1.9 mg/dL (1.6-2.6); Potassium 3.8 mmol/L (3.3-5.1); Sodium 140 mmol/L (135-145)
[2025-01-23 14:05] LABS: Influenza A PCR NEGATIVE (Negative); Influenza B PCR NEGATIVE (Negative); Resp Syncy Virus RNA Qual PCR NEGATIVE (Negative); SARS COV2 PCR INHOUSE NEGATIVE (Negative)
[2025-01-23 15:33] LABS: Thyroid Stimulating Hormone 0.93 uIU/mL (0.32-4.0)
[2025-01-23 16:22] VITALS: BP 141/91; PULSE 80; RESP 20; TEMP 36.4; O2SAT 99
== END 2025-01-23 16:22 | disposition home or self-care (01) ==
PROVIDERS: Physician Assistant Medical; Emergency Provider Emergency Medicine Emergency Medical Services
DX: H92.03 Otalgia, bilateral (principal); J02.9 Acute pharyngitis, unspecified; R51.9 Headache, unspecified; Z03.818 Encounter for observation for suspected exposure to other biological agents ruled out
CPT/HCPCS: 0241U; 70360; 70450; 80048; 83735; 84443; 84702; 85025; 87651; 99282; 99284

== ENCOUNTER → 2025-01-23 14:45 | Outpatient (BNV) | payer BC, SELFPAY | PROVIDERS: Emergency Provider Emergency Medicine Emergency Medical Services; Visit Provider Radiology Diagnostic Radiology | DX: G44.52 New daily persistent headache (NDPH) (principal); R07.0 Pain in throat | CPT/HCPCS: 70360; 70450 ==

== ENCOUNTER 2025-07-26 08:46 | Outpatient (AMB) | payer BC, SELFPAY ==
[2025-07-26 08:55] VITALS: BP 118/70; PULSE 69; O2SAT 97; BMI 34.6
--- NOTE | 2025-07-26 08:55 | A.OFFPC_ITS ---
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: No Accompanied by: Self / Same As Patient Allergies No Known Allergies Allergy (Verified 07/26/25 08:59) Medication List - Last Reconciled 07/26/25 by Sherwin Deng MD cetirizine (Zyrtec) 10 mg PO DAILY PRN Tobacco use date assessed: 07/26/25 Dental Screening Dental Screen Date: 07/26/25 Did you have a dental visit in the last 12 months?: Yes Did you have a dental problem in the last 6 months where you did not have access to dental care?: No Was dental information given to patient?: Patient has dentist HPI HPI Comments History of Present Illness Details The patient is a 35-year-old female presenting for the establishment of primary care and management of her medical conditions. The patient reports a history of seasonal allergic rhinitis, managed effectively with Zyrtec 10 mg daily. In November 2020, the patient underwent a cholecystectomy following acute upper abdominal pain, chest pain, and vomiting after consuming fish, initially misdiagnosed as an allergic reaction. Subsequent episodes of similar symptoms with different foods led to elevated liver function tests, prompting the surgical intervention. The patient has a childhood history of epilepsy, specifically petit mal seizures, with the last episode occurring in 2009. She was treated with Zoram 10 and omepdal during her childhood. The patient has been diagnosed with an MARICARMEN gene mutation, which increases her cancer risk, particularly breast cancer. She seeks a referral to hematology oncology for further management and surveillance, including alternating mammograms and MRIs starting at age 36. The patient reports recurrent episodes of pneumonia or bronchitis following asymptomatic COVID-19 in October 2022, raising concerns about potential undiagnosed pulmonary issues. She uses inhalers during acute episodes but does not have a diagnosis of asthma. [facility] Medical History (Updated 07/26/25 @ 10:47 by Sherwin Deng MD) Epilepsy Seizure disorder No known health problems Surgical History (Updated 07/26/25 @ 10:07 by Sherwin Deng MD) S/P cholecystectomy Social History Household Members: Spouse Housing: House Do you presently have visiting nurse or other home services: No Patient Tobacco Use Status: Never used Tobacco e-Cigarette/Vaping Use: Never Used Use of substances other than those prescribed or required for medical reasons: No Do you feel safe in your current relationship?: Yes Advance Directives Date on File: 12/02/20 service: No Current occupational status: employed Hearing needs: No Vision needs: No Female Reproductive History Menstrual Total pregnancies: 1 Number of Living Children: 1 Questionnaire PHQ-9 Over the last 2 weeks, how often have you been bothered by any of the following problems? 1. Little interest or pleasure in doing things: not at all 2. Feeling down, depressed, or hopeless: not at all 3. Trouble falling or staying asleep, or sleeping too much: not at all 4. Feeling tired or having little energy: several days 5. Poor appetite or overeating: not at all 6. Feeling bad about yourself - or that you are a failure or have let yourself or your family down: several days 7. Trouble concentrating on things, such as reading the newspaper or watching television: not at all 8. Moving or speaking so slowly that other people could have noticed. Or the opposite - being so fidgety or restless that you have been moving around a lot more than usual: not at all 9. Thoughts that you would be better off or of hurting yourself in some way: not at all Total score: 2 Depression Screening Interpretation: Negative Depression Screening Done: Yes 32948 - PHQ-9 Billing: Yes Source: Developed by Drs. Robi Mathis, Joselyn Sosa, Orlin Vidal and colleagues, with an educational toshia from [employer]. Thrive Questionnaire Date Thrive assessed: 07/26/25 I am a: Patient What is your living situation today?: I have a steady place to live Within the past 12 months, did the food you bought not last and you didn't have the money to get more?: Never true Within the past 12 months, did you worry whether your food would run out before you got money to buy more?: Never true Do you have trouble paying for medicines?: No Do you have trouble getting transportation to medical appointments?: No Do you have trouble paying your heating and electricity bill?: No Do you have trouble taking care of your child, family member or friend?: No Do you have trouble with day-to-day activities such as bathing, preparing meals, shopping, managing finances, etc.?: No Are you currently unemployed and looking for a job?: No Are you interested in more education?: Yes Please select the resources that you would like help with: Care for elder or disabled Currently or been in a relationship where the following occur: No concerns reported THRIVE Score: 0 AUDIT C Alcohol Use Questionnaire (AUDIT-C) 1. How often do you have a drink containing alcohol?: Never 3. How often do you have six or more drinks on one occasion?: Never Total Score: 0 ISREAL-7 AMB Questionnaire ISREAL-7 Date ISREAL - 7 assessed: 07/26/25 Feeling nervous, anxious, or on edge: 1 = Several days Not being able to stop or control worryin = Several days Worrying too much about different things: 1 = Several days Trouble relaxin = Not at all Being so restless that it is hard to sit still: 0 = Not at all Becoming easily annoyed or irritable: 0 = Not at all Feeling afraid as if something awful might happen: 0 = Not at all Total ISREAL-7 score (0-4 normal; 5-9 mild; 10-14 moderate; 15-21 severe): 3 Source: Developed by Drs. Robi Mathis, Joselyn Sosa, Orlin Vidal and colleagues, with an educational toshia from [employer] ISREAL-7 Assessment Billing ISREAL-7 Assessment Tool: ISREAL-7 Assessment 66487 Review of Systems Const Details: Positives besides what was mentioned in HPI are in BOLD Constitutional: No Weight Change, No Fever, No Chills, No Night Sweats, No Fatigue, No Malaise ENT/Mouth: No Hearing Changes, No Ear Pain, No Nasal Congestion, No Sinus Pain, No Hoarseness, No sore throat, No Rhinorrhea, No Swallowing Difficulty Eyes: No Eye Pain, No Swelling, No Redness, No Foreign Body, No Discharge, No Vision Changes Cardiovascular: No Chest Pain, No SOB, No PND, No Dyspnea on Exertion, No Orthopnea, No Claudication, No Edema, No Palpitations Respiratory: No Cough, No Sputum, No Wheezing, No Smoke Exposure, No Dyspnea Gastrointestinal: No Nausea, No Vomiting, No Diarrhea, No Constipation, No Pain, No Heartburn, No Anorexia, No Dysphagia, No Hematochezia, No Melena, No Flatulence, No Jaundice Genitourinary: No Dysmenorrhea, No DUB, No Dyspareunia, No Dysuria, No Urinary Frequency, No Hematuria, No Urinary Incontinence, No Urgency, No Flank Pain, No Urinary Flow Changes, No Hesitancy Musculoskeletal: No Arthralgias, No Myalgias, No Joint Swelling, No Joint Stiffness, No Back Pain, No Neck Pain, No Injury History Skin: No Skin Lesions, No Pruritis, No Hair Changes, No Breast/Skin Changes, No Nipple Discharge Neuro: No Weakness, No Numbness, No Paresthesias, No Loss of Consciousness, No Syncope, No Dizziness, No Headache, No Coordination Changes, No Recent Falls Psych: No Anxiety/Panic, No Depression, No Insomnia, No Personality Changes, No Delusions, No Rumination, No SI/HI/AH/VH, No Social Issues, No Memory Changes, No Violence/Abuse Hx., No Eating Concerns Heme/Lymph: No Bruising, No Bleeding, No Transfusions History, No Ly mphadenopathy Endocrine: No Polyuria, No Polydipsia, No Temperature Intolerance Physical exam (Primary Care) Vital Signs: Last Vital Signs Pulse 69 07/26/25 08:55 BP 118/70 07/26/25 08:55 Pulse Ox 97 07/26/25 08:55 Oxygen Delivery Method Room Air 07/26/25 08:55 BMI result Body Mass Index 34.6 Tobacco/Smoking Status: Tobacco use Status Tobacco use date assessed 07/26/25 07/26/25 09:10 Patient Tobacco Use Status Never used Tobacco 07/26/25 09:10 e-Cigarette/Vaping Use Never Used 07/26/25 09:10 PHQ-9: PHQ-9 Score PHQ-9: Total score 2 07/26/25 09:10 Depression Screening Interpretation: Negative Thrive Assessment: Date of Thrive Assessment Date Thrive assessed 07/26/25 07/26/25 09:10 Currently or been in a relationship where the following occur: No concerns reported Const Other: Pertinent findings are in BOLD GENERAL APPEARANCE NAD, activity normal for age, well developed/ well nourished, no cyanosis, pallor, or diaphoresis. EYES lids/conjunctiva normal. EARS/NOSE/THROAT Mucous membranes moist, nares normal, lips/teeth normal uvula midline without oral pharyngeal erythema, exudate or swelling TMs normal bilaterally. No lymphangitis/lymphedema. HEAD/NECK normocephalic atraumatic, no facial trauma, neck is supple. RESPIRATORY respiratory effort normal, speaks in full sentences, no tripod position, no accessory muscle use. Lungs clear to auscultation without rhonchi, wheezes, rales CARDIAC Regular rate and rhythm, no edema. ABDOMINAL Soft, ND/NT. No evidence of fluid wave. No pulsatile masses on exam, rebound tenderness, Handley sign or pain over Mcburney's point. MUSCLES/EXTREMITIES No abnormal range of motion, no swelling. SKIN Warm, pink and dry. No rashes, dermatoses, petechiae or lesions. NEUROLOGICAL Speech is clear and appropriate. Normal level of consciousness. Gait and coordination are normal. 5/5 strength in all extremities. PSYCH Normal mood and affect. Judgement/competence is appropriate Coding Level of Care Code New Pt Level 4 (41546) Diagnoses MARICARMEN gene mutation positive Z15.01; Z15.09 Seasonal allergies J30.2 Health maintenance examination Z00.00 Class 1 obesity without serious comorbidity with body mass index (BMI) of 34.0 to 34.9 in adult, unspecified obesity type E66.811; Z68.34 Obesity type: unspecified obesity type Obesity classification: adult class 1 (BMI 30 - 34.9) Serious obesity comorbidity presence: without serious comorbidity Body mass index: BMI 34.0-34.9 Additional Codes ISREAL-7 Assessment Billing - ISREAL-7 Assessment Tool: ISREAL-7 Assessment 23236 ([id number]) PHQ-9 - 53451 - PHQ-9 Billing: Yes ([id number]) Time Spent (min) 30 Assessment & Plan Assessment & Plan (1) MARICARMEN gene mutation positive: Code(s): Z15.01 - Genetic susceptibility to malignant neoplasm of breast; Z15.09 - Genetic susceptibility to other malignant neoplasm Plan: Patient was advised in the past for early screening. For this reason we will refer her to Hematology Oncology to see if in the earlier cancer screening is indicated in her case. Patient will bring prior records and the exact name of the gene mutation she has to her oncology appointment. (2) Seasonal allergies: Code(s): J30.2 - Other seasonal allergic rhinitis Category: Medical Plan: Continue Zyrtec. (3) Health maintenance examination: Code(s): Z00.00 - Encounter for general adult medical examination without abnormal findings Category: Medical Plan: CBC, CMP, Lipid panel, A1C, TSH w T4, Vit D. Ordered today. Patient to get them prior to her next visit. Patient reports completing COVID. She will get the flu vaccine from retail pharmacy. Colonoscopy: 45-75 Unless otherwise indicated by Oncology. AAA: NI Ct lung: NI Mammogram: NI currently unless otherwise specified by Oncology. HPV: Follows with OSH OBGYN. HIV: Done in the past and it was negative. HBV: Done in the past and it was negative. HCV: Done in the past and it was negative. (4) Obesity: Code(s): E66.9 - Obesity, unspecified Category: Medical Qualifiers: Obesity type: unspecified obesity type Obesity classification: adult class 1 (BMI 30 - 34.9) Serious obesity comorbidity presence: without serious comorbidity Body mass index: BMI 34.0-34.9 Qualified Code(s): E66.811 - Obes ity, class 1; Z68.34 - Body mass index [BMI] 34.0-34.9, adult Plan: Patient has already lost weight from Optivia diet. Advised on continuing the same effforts. Patient is advised to eat healthy, keep well hydrated, keep active and have adequate sleep. Plan During the visit, I discussed with the patient the management of her seasonal allergic rhinitis with Zyrtec, which has been effective. We reviewed her history of cholecystectomy and childhood epilepsy, noting no current issues.I provided a referral to hematology oncology for further management of her MARICARMEN gene mutation. We discussed the importance of maintaining her vaccinations, including the flu shot, and continuing her weight management efforts with the Optavia diet. Orders: Orders Complete Blood Count no Diff Today Z00.00 - Encounter for general adult medical examination without abnormal findings Comprehensive Met. Panel Today Z00.00 - Encounter for general adult medical examination without abnormal findings Hemoglobin A1c Today Z00.00 - Encounter for general adult medical examination without abnormal findings TSH reflex Free T4 Today Z00.00 - Encounter for general adult medical examination without abnormal findings Vitamin D 1,25 dihydroxy Today Z00.00 - Encounter for general adult medical examination without abnormal findings Lipid Panel Today Z00.00 - Encounter for general adult medical examination without abnormal findings Referrals Hematology & Oncology Referral Z15.89 - Genetic susceptibility to other disease
--- OUTSIDE RECORDS SUMMARY | 2025-07-26 10:04 | XMS_ITS | Encounter Summary ---
Author Organization [facility] Address [address] [place] [id number] Care Team Providers Care Fitter Hand Name Role Phone Unavailable Primary Care Provider Unavailabl e Encounter Details Date Type Department Care Team (Late st Contact Info) Description 11/12/2023 Lab Requisition [facility] Pathology & Laboratory Medicine - [facility] [address] [place] [address] Outr Resulting Lab, Provider Social History Tobacco Use Types Packs/Day Years Used Date Smoking Tobacco: Never Assessed Comments Unknown Sex and Gender Information Value Date Recorded Sex Assigned at Not on file Legal Sex Female 14:34 EST Gender Identity Not on file Sexual Orientation Not on file documented as of this encounter Plan of Treatment Not on file documented as of this encounter Procedures Procedure Name Priority Date/Time Associated Diagnosis Comments VARICELLA IGG ANTIBODY Routine 11/12/2023 11:45 EST documented in this encounter Results * VARICELLA IGG ANTIBODY (11/12/2023 11:45 EST) Varicella IgG Ab Positive See Note 11/15/2023 12:35 EST [facility] Comment:Presence of detectab le Varicella Zoster virus IgG antibodies. Blood VENOUS BLOOD / Unknown 11/12/2023 11:45 EST 11/12/2023 21:56 EST us Provider Outr Resulting Lab IMMUNOLOGY AND SEROL OGY ORDERABLES Final Result [facility] [address] [place] [address] documented in this encounter Visit Diagnoses Not on filedocumented in this encounter
--- OUTSIDE RECORDS SUMMARY | 2025-07-26 10:04 | XMS_ITS | Clinical Summary ---
Author Organization [facility] Address [address] [place] [address] Care Team Providers Care Loft Patternmaker Name Role Phone Unavailable Primary Care Provider Unavailabl e Social History Tobacco Use Types Packs/Day Years Used Date Smoking Tobacco: Never Assessed Comments Unknown Sex and Gender Information Value Date Recorded Sex Assigned at Not on file Legal Sex Female 14:34 EST Gender Identity Not on file Sexual Orientation Not on file Plan of Treatment Health Maintenance Due Date Last Done Comments Hepatitis C Screen 1991 Hepatitis B Vaccine (1 of 3 - 19+ 3-dose series) 07/10 COVID-19 Vaccine ( season) 2024
== END 2025-07-26 09:43 | disposition home or self-care (01) ==
PROVIDERS: PCP Internal Medicine; Visit Provider Internal Medicine
DX: Z15.01 Genetic susceptibility to malignant neoplasm of breast (principal); Z15.09 Genetic susceptibility to other malignant neoplasm; J30.2 Other seasonal allergic rhinitis; Z00.00 Encounter for general adult medical examination without abnormal findings; E66.811 Obesity, class 1; Z68.34 Body mass index [BMI] 34.0-34.9, adult

== ENCOUNTER → 2025-07-26 08:46 | Outpatient (BNVA) | payer BC, SELFPAY | PROVIDERS: Visit Provider Internal Medicine | DX: Z00.00 Encounter for general adult medical examination without abnormal findings (principal); G40.909 Epilepsy, unspecified, not intractable, without status epilepticus; J30.2 Other seasonal allergic rhinitis; E66.811 Obesity, class 1; Z68.34 Body mass index [BMI] 34.0-34.9, adult; Z15.01 Genetic susceptibility to malignant neoplasm of breast; Z15.09 Genetic susceptibility to other malignant neoplasm | CPT/HCPCS: 96127 ==

== ENCOUNTER 2025-09-23 14:31 | Emergency (ER) | payer BC, SELFPAY ==
[2025-09-23 14:34] VITALS: BP 133/93; PULSE 83; RESP 17; TEMP 36.8; O2SAT 97; BMI 33.7
[2025-09-23] MEDS: Lidocaine HCl 1 % 20 ML VIAL 10 ML INFILTRATI (14:50)
--- OUTSIDE RECORDS SUMMARY | 2025-09-23 14:54 | XMS_ITS | Clinical Summary ---
Author Organization [facility] Address [address] [place] [address] Care Team Providers Care Fbi Field Agent Name Role Phone Unavailable Primary Care Provider [...] 3-dose series) 07/10 COVID-19 Vaccine ( season) 2025
--- OUTSIDE RECORDS SUMMARY | 2025-09-23 14:54 | XMS_ITS | Encounter Summary ---
Author Organization [facility] Address [address] [place] [address] Care Team Providers Care Electronics Engineering Technician Name Role Phone Unknown Primary Care Provider Encounter Details Date Type Department Care Team (Late st Contact Info) Description 07/03/2020 Prep for Surgery [facility] IP [address] [place] [address] Lenore Smith [address] [address] Pre-op testing (Primary Dx) Social History Tobacco Use Types Packs/Day Years Used Date Smoking Tobacco: Never Assessed Comments Yes Sex and Gender Information Value Date Recorded Sex Assigned at Female 06/10/2023 7:49 AM EDT Legal Sex Female 9:23 AM EST Gender Identity Female 06/10/2023 7:49 AM EDT Sexual Orientation Heterosexual (straight) 06/10 7:49 AM EDT COVID-19 Exposure Response Date Recorded In the last month, have you been in contact with someone who was confirmed or suspected to have Coronavirus / COVID-19? Unable to assess 07/04/2020 8:11 AM EDT documented as of this encounter Plan of Treatment Not on file documented as of this encounter Results * COVID-19 (SARS-COV-2) Lab Request (07/05/2020 9:04 AM EDT) COVID-19 (SARS-CoV-2) Specimen received and test ordered for designated performing laboratory. HOSPITAL LAB Microbiology Nasopharyngeal swab / Unknown 07/05/2020 9:04 AM EDT 07/05/2020 10:32 AM EDT Lenore Smith CNM MICROBIOLOGY - GENERAL KACIE OROZCO Final Result HOSPITAL LAB documented in this encounter Visit Diagnoses Diagnosis Pre-op testing- Primary Unspecified pre-operative examination documented in this encounter Care Teams Electronics Engineering Technician Relationship Specialty Start Date End Date Unknown Unknow Provider Address PCP - General 12/01/19 documented as of this encounter
--- OUTSIDE RECORDS SUMMARY | 2025-09-23 14:54 | XMS_ITS | Clinical Summary ---
Author Organization [facility] Address [address] [place] [address] Care Team Providers Care Electric Clock Mechanic Name Role Phone Unknown Primary Care Provider [phone] Allergies No known active allergies Medications acetaminophen (TYLENOL) 325 MG tabletIndications:P ost-dates , delivered, current hospitalization Take 3 tablets (975 mg total) by mouth 4 times daily (every 6 hours) as needed for mild pain, moderate pain, headaches or fever. 0 Active ibuprofen (MOTRIN) 800 mg tabletIndications:P ost-dates , delivered, current hospitalization Take 1 tablet (800 mg total) by mouth every 8 (eight) hours around the clock. 90 tablet 0 Active Active Problems Problem Noted Date Diagnosed Date Post-dates 07/11/2020 Social History Tobacco Use Types Packs/Day Years Used Date Smoking Tobacco: Never Assessed Comments No Sex and Gender Information Value Date Recorded Sex Assigned at Female 06/10/2023 7:49 AM EDT Legal Sex Female 9:23 AM EST Gender Identity Female 06/10/2023 7:49 AM EDT Sexual Orientation Heterosexual (straight) 06/10 7:49 AM EDT Last Filed Vital Signs Vital Sign Reading Time Taken Comments Blood Pressure 130/80 07/12/2020 5:21 PM EDT Pulse 70 07/12/2020 5:21 PM EDT Temperature 36.7 C (98 F) 07/12/2020 5:21 PM EDT Respiratory Rate 18 07/12/2020 5:21 PM EDT Oxygen Saturation 97% 07/12/2020 5:21 PM EDT Inhaled Oxygen Concentration - - Weight 90.7 kg (200 lb) 07/11/2020 1:26 AM EDT Height 160 cm (5' 3 ) 07/11/2020 1:26 AM EDT Body Mass Index 35.43 07/11/2020 1:26 AM EDT Plan of Treatment Health Maintenance Due Date Last Done Comments Hepatitis C Virus Screening 1991 HIV Screening 2004 DTaP/Tdap/Td Vaccines (1 - Tdap) 2010 Hepatitis B Vaccines (1 of 3 - 19+ 3-dose series) 2010 Pap Smear (Ages 21-65) 2012 Influenza Vaccine 06/08/2025 08/06/2023, 07/17/2022 COVID-19 Vaccine ( - 2023-2 5 season) 2025 HPV Vaccines (No Doses Required) Completed Pneumococcal Vaccine: Pediatric (0-5 Years) and At-Risk Patients (6 to 49 Years) Aged Out No longer eligible b ased on patient's age to complete this topic Insurance - [facility] Advance Directives * Full Code (Latest Code Status on File) Date Activated Date Inactivated Comments 07/11/2020 10:33 AM * Full Code Date Activated Date Inactivated Comments 07/11/2020 1:26 AM 07/11/2020 10:33 AM Care Teams Electric Clock Mechanic Relationship Specialty Start Date End Date Unknown Unknow Provider Address PCP - General 12/01/19
--- OUTSIDE RECORDS SUMMARY | 2025-09-23 14:54 | XMS_ITS | Encounter Summary ---
Author Organization [facility] Address [address] [place] [address] Care Team Providers Care Fuel Quality Tech Name Role Phone Unavailable Primary Care Provider Unavailabl e Encounter Details Date Type Department Care Team (Late st Contact Info) Description 11/12/2023 Lab Requisition [facility] Pathology & Laboratory Medicine - [facility] [address] [place] [address] Outr Resulting Lab, Provider Social History Tobacco [...] Ab Positive See Note 11/15/2023 12:35 EST [facility] Comment:Presence of detectab le Varicella Zoster virus IgG antibodies. Blood VENOUS BLOOD / Unknown 11/12/2023 11:45 EST 11/12/2023 21:56 EST us Provider Outr Resulting Lab IMMUNOLOGY AND SEROL OGY ORDERABLES Final Result [facility] [address] [place] [address] documented in this encounter Visit Diagnoses Not on filedocumented in this encounter
--- NOTE | 2025-09-23 15:03 | ED.BACK ---
HPI - Back Pain/Injury General Chief Complaint: Back Pain/Injury Stated Complaint: upper back pain Time Seen by Provider: 09/23/25 14:39 Source: patient Mode of arrival: ambulatory Limitations: no limitations History of Present Illness ED Provider: HPI Narrative: 35-year-old female otherwise healthy presenting with upper back pain, for the past 5 days no numbness in upper or lower extremities no chest pain no fevers or chills no trauma reported, likely started after a poor sleeping position. Pain exacerbated by head rotation Related Data Home Medications ?Medication ?Instructions ?Recorded ?Confirmed cetirizine 10 mg tablet (Zyrtec) 10 mg PO DAILY PRN PRN 07/26/25 09/05/25 Allergies Allergy/AdvReac Type Severity Reaction Status Date / Time No Known Allergies Allergy Verified 09/23/25 14:35 Review of Systems Constitutional: Constitutional: Reports as per [facility] Past Medical History Medical History (Updated 09/23/25 @ 15:08 by Flaquito Santos, ) Epilepsy Seizure disorder No known health problems Surgical History S/P cholecystectomy Family History Family History (Updated 09/05/25 @ 14:54 by Jarocho Vazquez) Employee No problems noted. Unknown No problems noted. 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 ) Current occupational status: employed Hearing needs: No Vision needs: No Physical Exam Exam: Exam: Full range of motion of the neck, otherwise supple neck Trigger points all along trapezius and from the upper cervical down to midthoracic Bilateral pulses radial +2, good strength on flexion-extension, distal median ulnar motor and sensory intact Vital Signs: Vital Signs: Last Vital Signs Temp 98.2 F 09/23/25 14:34 Pulse 83 09/23/25 14:34 Resp 17 09/23/25 14:34 BP 133/93 H 09/23/25 14:34 Pulse Ox 97 09/23/25 14:34 O2 Del Method Room Air 09/23/25 14:34 BMI result Body Mass Index 33.7 Medications Administered Discontinued Medications Generic Name Dose Route Start Last Admin Trade Name Genaro PRN Reason Stop Dose Admin Ketorolac Tromethamine 15 mg 09/23/25 14:39 09/23/25 14:51 Ketorolac Tromethamine 15 Mg/Ml Vial IM 09/23/25 14:40 15 mg ONCE ONE Administration Lidocaine HCl 10 ml 09/23/25 14:39 09/23/25 14:50 Lidocaine Hcl 1 % 20 Ml Vial INFILTRATI 09/23/25 14:40 10 ml ONCE ONE Administration Medical Decision Making Medical Decision Making MDM Narrative: 3:06 PM 09/23/2025 (Dr. Flaquito Santos): No evidence of trauma, infectious etiology, cervical myelopathy, neck masses,, nonfebrile not related to infectious etiology such as diskitis osteomyelitis, verbal consent for trigger point injections obtained, injected with a total of 15 cc of 1% lidocaine with immediate and significant improvement in her pain symptoms Differential Diagnosis Differential Diagnoses: The differential diagnosis associated with the presentation includes (See above) Procedures Procedure Narrative Procedure Narrative: CPT 69739: ?1 or 2 muscle groups injected single or multiple trigger points Time-out: A time-out was performed to confirm the correct patient, procedure, site, and consent. Technique: The patient was placed in a [sitting] position. The skin overlying the trigger points was cleansed with [alcohol prep pad]. The trigger points were palpated and marked. Stabilization and Injection: The provider stabilized the muscle tissue by pinching the trigger point between their fingers. Using [25-gauge, 1.0-inch needle], the medication was injected with a fanning motion into the affected muscles. Medication: A solution of ?[ 15 mL of 1% lidocaine ] was injected. Muscles Injected: A total of [ #2 ] muscles were injected on the [left] side, including the: [Trapezius] [Levator Scapulae] Post-Procedure: Patient Response: The patient tolerated the procedure well and reported [immediate and significant] improvement in their pain. Follow-up: The injection sites were cleaned, and a bandage was applied. The patient was instructed to [apply ice for 15 minutes as needed] and advised on potential post-injection soreness. Assessment and Plan: The injection was successful, resulting in ?decreased pain and improved range of motion. Follow-up will be scheduled as needed. Discharge Plan Discharge Clinical Impression: Acute torticollis Additional Instructions: I recommend capsaicin ointment patches to be applied along the back where injected your today, continue with ice therapy as well, gentle [id number] exercises of the neck, continue with Motrin 400 mg every 6 hours, worsening issues or concerns come back to ER otherwise follow up with your PCP Prescriptions: No Action cetirizine [Zyrtec] 10 mg tablet 10 mg PO DAILY PRN (Reason: PRN ) Print Language: Turkmen
[2025-09-23 15:12] VITALS: BP 133/93; PULSE 83; RESP 17; TEMP 36.8; O2SAT 97
== END 2025-09-23 15:12 | disposition home or self-care (01) ==
PROVIDERS: Emergency Provider Emergency Medicine; PCP Internal Medicine
DX: M54.6 Pain in thoracic spine (principal); M43.6 Torticollis; M79.18 Myalgia, other site; Z79.899 Other long term (current) drug therapy
CPT/HCPCS: 20552; 96372; 99283; 99284; J1885; J2003